=== PATIENT | male | born 1930 | race Caucasian/White ===

== ENCOUNTER 2017-04-01 10:10 | Inpatient (IN) ==
[2017-04-01] MEDS ORDERED: SODIUM CHLORIDE 0.9% 500 ML IV STA (10:40)
[2017-04-01] MEDS ORDERED: PANTOPRAZOLE 40 MG VIAL IV STA (10:40)
--- NOTE | 2017-04-01 10:48 | Emergency Department Note ---
Radha Grover Brittany, am scribing for, and in the presence of, Pavel Brasher MD 10: 46. Sameera Grover James D, MD, personally performed the services described in this documentation, ascribed by Nathalie Garcia in my presence, and it is both accurate and complete . Arrival - Arrival Chief Complaint: Weakness Stated Complaint: weakness ED Nursing Triage Note: Brought in per EMS from home with c/o generalized weakness onset "few weeks" ago with worsening this am. Also c/o black tarry stools. Denies pain. Mode of Arrival: Stretcher Limitations: No Limitations Source: Patient, EMS Time Seen by Provider: 04/01/17 10:35 - History of Present Illness HPI Narrative: This is an 86 y/o white male,who presents to the ED for further evaluation of melena which started 2 weeks ago. He denies any abd pain. He states he has been generalized weak with the black tarry stools. Upon exam pt had a + hemastool. Pt has no other complaints/pain in the ED at this time. Pt has a PMHx of NIDDM, pacemaker, TIA, depression, prostate cancer, and anemia. Pt denies a surgical Hx. Pt denies a family medical Hx. Pt is a current every day smoker. Patient denies any nonsteroidal anti-inflammatory drug use. Onset (ago): week(s) (Started 2 weeks ago) Consistency: constant Severity: moderate Allergies/Adverse Reactions: Allergies Allergy/AdvReac Type Severity Reaction Status Date / Time Penicillins Allergy RASH Verified 04/01/17 10:22 Home Medications: Home Medications Medication Instructions Recorded Confirmed Type Cholecalciferol [Vitamin D3] 1,000 unit PO QAM 10/29/16 04/01/17 History Colestipol HCl 1 gm PO BID 10/29/16 04/01/17 History Ferrous Sulfate Tab [Feosol 325 mg PO QAM 10/29/16 04/01/17 History Original Tab] Oxybutynin [Ditropan] 5 mg PO BID 10/29/16 04/01/17 History Escitalopram Oxalate 20 mg PO QAM 04/01/17 04/01/17 History Furosemide [Furosemide] 40 mg PO QAM 04/01/17 04/01/17 History Potassium 99 mg PO QAM 04/01/17 04/01/17 History metOLazone [Metolazone] 2.5 mg PO QAM 04/01/17 04/01/17 History Review of System - Review of System 12 point system: reviewed and no additional remarkable complaints except as stated - Review of System Constitutional: Present: weakness (Generalized weakness) Gastrointestinal: Present: melena, hematochezia. Absent: abdominal pain Medical,Surgical,& Family Hx - Medical History Cardio: History of: Pacemaker Psychological: History of: Depression Neurology: History of: TIA Endocrine: History of: Diabetes Mellitus (NIDDM) Genitourinary: History of: Prostate Problems (PROSTATE CANCER) Hematology: History of: Anemia - Surgical History Reproductive Surgeries: Patient denies;: Prostate Surgery (RADIATION) - Social History Smoking Status: Current every day smoker Frequency of Alcohol Use: None Type of Drug Use: None Exam Vital Signs: Vital Signs Temperature 97.7 F 04/01/17 10:17 Pulse Rate 71 04/01/17 11:30 Respiratory Rate 14 04/01/17 11:30 Blood Pressure 127/72 04/01/17 11:30 O2 Sat by Pulse Oximetry 100 04/01/17 11:30 GENERAL: This is a chronically and acutely ill-appearing white male in no apparent distress. VITAL SIGNS: Reviewed HEENT: Head is atraumatic and normocephalic. Pupils are equal round react to light. Extraocular movements are intact. Oropharynx is benign with moist mucous membranes. NECK: Neck is soft and supple without tenderness. There are no masses. There is no lymphadenopathy. LUNGS: Lungs are clear to auscultation. Chest rises symmetrically. There is no chest wall tenderness. CV: Heart is regular rate and rhythm without murmurs rubs or gallops. ABDOMEN: Abdomen is soft, nontender to palpation. There are no abdominal abnormal masses palpated. There is no organomegaly. Bowel sounds are present and active. Rectal: Black heme positive stool present in the rectum. No masses palpable. SKIN: Skin is warm and dry. No rash. EXTREMITIES: Patient has full range of motion without tenderness. There is no pedal edema. NEUROLOGIC: Awake alert and oriented 4. Cranial nerves II through XII are grossly intact. Motor is 5 over 5 in all extremities bilaterally. Course - Consultations Consultation #1: Discussed with hospitalist. Patient will be admitted to their service. Time: 12:14 Results - Labs CBC & BMP: 04/01/17 11:09 04/01/17 11:09 Lab Results: I have reviewed the patients labs - EKG EKG results: interpreted by ERMD - Impressions EKG: Electronic ventricular pacemaker with a rate of 74, no further interpretation possible. - Diagnostic Findings Procedure: Abdominal x-ray: image reviewed by me (Nonspecific gas pattern, no free air.), Chest x-ray: image reviewed by me (Right pleural effusion, pacemaker in place.) Disposition Clinical Impression: Acute upper GI bleed, Renal failure Case discussed with: patient, patient's family Disposition: Still a Patient Condition: Stable
[2017-04-01] MEDS ORDERED: PANTOPRAZOLE 40 MG VIAL IV ONE (10:49)
--- NOTE | 2017-04-01 11:03 | XRay Report ---
Exam: XR chest 1V portable Date: 04/01/2017 10:40 AM Indication: Shortness of breath Comparison: 10/29/2016 Technical: AP portable Findings: Left-sided cardiac pacing device with atrial ventricular leads present. The heart is slightly accentuated. Low volume right effusion and atelectatic change present. ASVD is present. There is some slight deviation of the trachea to the right with possible substernal thyroid tissue present. No pneumothorax present. Impression: 1. Right base pleural effusion atelectatic change or infiltrates 2. Stable position of the left subclavian cardiac pacing device with atrial ventricular leads. 3. Some minimal calcification over the right neck laterally. PROCEDURE INTERPRETED AT [facility] DEPARTMENT OF RADIOLOGY Final Report Signed by: Dr. Norman Bahena
--- NOTE | 2017-04-01 11:05 | XRay Report ---
Exam: XR abdomen complete w decub Date: 04/01/2017 10:41 AM Indication: Abdominal pain Comparison: None Technical: Supine imaging and decubitus Findings: Degenerative changes present thoracolumbar spine. Vascular plaque in the aorta iliac vessels. Low volume right effusion present. No obvious pneumoperitoneum. Moderate fecal debris in the rectal ampulla. The spleen and liver and renal shadows are partially obscured. Impression: 1. Degenerative spondylosis change thoracic lumbar spine 2. Vascular calcinosis 3. Phleboliths present in the distal right abdomen measuring approximately 10 mm 4. Nonspecific GI pattern. PROCEDURE INTERPRETED AT [facility] DEPARTMENT OF RADIOLOGY Final Report Signed by: Dr. Norman Bahena
[2017-04-01 11:24] LABS: Basophils % 0.5 % (0.0-0.8); Eosinophils # 0.2 10*3/uL (0.0-0.87); Eosinophils % 3.4 % (0.00-10.9); Hematocrit 33.5 VOL% (42.0-52.0); Hemoglobin 11.3 GM/DL (14.0-18.0); Immature Granulocytes % 0.2 %; Immature Granulocytes Absolute 0.01 #; Lymphocytes # 0.6 10*3/uL (1.4-4.0); Lymphocytes % 13.3 % (21.2-54.2); Mean Corpuscular HGB Conc 33.7 GM/DL (32-36); Mean Corpuscular Hemoglobin 30 PG (27-34); Mean Corpuscular Volume 89.8 FL (87-102); Mean Platelet Volume 10.8 FL (9.6-12.0); Monocytes # 0.5 10*3/uL (0.11-0.8); Monocytes % 11.9 % (1.7-12.7); Neutrophils # 3.1 10*3/uL (1.4-7.4); Neutrophils % 70.7 % (38.7-73.9); Red Blood Count 3.73 MC/CUMM (3.8-5.5); Red Cell Distribution Width 13.8 % (9.3-17.3); White Blood Count 4.4 T/CUMM (4-12)
[2017-04-01 11:27] LABS: Platelet Count 74 T/CUMM (130-400)
[2017-04-01 11:30] LABS: INR 1.2; PT Patient Result 12.3 SECS; Partial Thromboplastin Time 29.6 SECS (0-40)
[2017-04-01 11:42] LABS: Platelet Estimate Decreased
[2017-04-01 11:55] LABS: Albumin 3.3 G/DL (3.4-5.0); Bilirubin,Total 0.8 MG/DL (0.2-1.0); Calcium 8.8 MG/DL (8.5-10.1); Osmolality,Calculated 293.3 MOS/KG (273-304); Potassium 3.6 MMOL/L (3.5-5.1); Total Protein 7.3 G/DL (6.4-8.3)
--- NOTE | 2017-04-01 13:13 | EKG Report ---
Stationary ECG Study [facility] ER Test Date: 04/01/2017 10:57:01 AM Pat Name: DAVID CHASE Department: Room: Gender: M Hr Business Partner Consultant: : [id number] Requested by: Pavel Shin Order Number: [id number] Rekha MD: LUISANA KANG Intervals [place] Rate: 74 P: 999 ND: 0 QRS: 79 QRSD: 144 T: -78 QT: 438 QTc: 466 Interpretive Statements ELECTRONIC VENTRICULAR PACEMAKER ABNORMAL RHYTHM ECG Electronically Signed On 04-01-17 18:44:08 CDT by LUISANA KANG [email or web address]
--- NOTE | 2017-04-01 13:35 | Hospitalist History & Physical ---
Assessment and Plan - Time spent with patient Time spent with patient: Greater than 30 minutes (1) Chronic renal failure Status: Acute Assessment and plan: Mr. Suh is an 86-year-old white male with history of depression, prostate cancer, history of lower GI bleed admitted by hospitalist service with 2 week history of black tarry stools, weakness and fatigue. Patient's vital signs are stable and H&H is stable. Will admit to a monitored bed and consult GI for further workup. Patient has seen Dr. Crooks in 2013. Patient will be given fluids and clear liquid diet. Will review his home medicines and start appropriate meds. Patient's case has been discussed with Dr. Vidales and further recommendations to follow. Current Visit: Yes (2) GI bleed Status: Acute Current Visit: Yes (3) History of prostate cancer Status: Acute Current Visit: Yes (4) History of lower GI bleeding Status: Acute Current Visit: Yes History of Present Illness Chief complaint: Tarry stools History of present illness: Mr. Suh is a 86 year old male with history of anemia, prostate cancer status post radiation, depression, pacemaker placement for bradycardia presenting to the ED with a 2 week history of dark tarry stools. Patient states he has been having 2-3 dark tarry stools for about 2 weeks but he has progressively gotten weaker over the last few days and tired. Daughter is in the room states he is sleeping all the time and is very weak. Patient denies vomiting of blood or bright red blood per rectum. Patient and daughter both state he has lost 20 pounds in the last 6 months and 10 of them have been in the last week or 2. He thinks his p.o. intake has been fine. He denies headache, shortness of breath, chest pain, constipation or diarrhea, nausea or vomiting, abdominal pain, or lower extremity edema. Dr. Jo was his primary care physician but they state they fired him yesterday. Patient denies any heart or lung problems. Patient states he has never seen a GI doctor but [facility] records state he seen Dr. Crooks in 2013 for colonoscopy with snare polypectomy and cold biopsy for pathology. [facility] records also show a history of stroke. Also found some records dated 10/11/[address] Gagandeep Talbot performed an exploratory laparotomy with right colectomy and hemitransverse colectomy for bleeding diverticulosis secondary to massive lower GI bleed. Patient's vital signs are stable and his H&H is stable at 11.3/33.5, but platelets are low at 74. His creatinine is 2, blood sugars 130 but otherwise his labs are unremarkable. Upon exam patient is alert and oriented, chest is clear, abdomen is soft and nontender. Patient's case was discussed with Dr. Brasher the ED physician and Dr. Vidales the admitting hospitalist, and it was agreed patient would be admitted for further evaluation. Home Medications Medication Instructions Recorded Confirmed Type Cholecalciferol [Vitamin D3] 1,000 unit PO QAM 10/29/16 04/01/17 History Colestipol HCl 1 gm PO BID 10/29/16 04/01/17 History Ferrous Sulfate Tab [Feosol 325 mg PO QAM 10/29/16 04/01/17 History Original Tab] Oxybutynin [Ditropan] 5 mg PO BID 10/29/16 04/01/17 History Escitalopram Oxalate 20 mg PO QAM 04/01/17 04/01/17 History Furosemide [Furosemide] 40 mg PO QAM 04/01/17 04/01/17 History Potassium 99 mg PO QAM 04/01/17 04/01/17 History metOLazone [Metolazone] 2.5 mg PO QAM 04/01/17 04/01/17 History Allergies Allergy/AdvReac Type Severity Reaction Status Date / Time Penicillins Allergy RASH Verified 04/01/17 10:22 Medical,Surgical,& Family Hx - Medical History Cardio: History of: Pacemaker Psychological: History of: Depression Neurology: History of: TIA Endocrine: History of: Diabetes Mellitus (NIDDM) Genitourinary: History of: Prostate Problems (PROSTATE CANCER) Hematology: History of: Anemia - Surgical History Cardiac Surgeries: Sugical HX of: Vascular Access Devices Abdominal Surgeries: Surgical HX of: Abdominal Surgery, Colonoscopy Reproductive Surgeries: Patient denies;: Prostate Surgery (RADIATION) - Family History Family History: Reports;: Family Cancer - Social History Smoking Status: Current every day smoker Frequency of Alcohol Use: None Type of Drug Use: None Marital Status: Single Lives With:: Children Functional capacity: uses cane/walker Review of systems: 10 system review of systems was obtained and pertinent positives and negatives per HPI Exam - Constitutional Vitals: Period Temp Pulse Resp BP Sys/Spring Pulse Ox Last 24 Hr 75-77 13-15 117-122/75-77 98-100 Exam: Constitutional System: No distress. No tremulousness. Head: Normocephalic, atraumatic. Ears, Nose and Throat System: No evidence of Otitis or Mastoiditis. No epistaxis or discharge mucous membranes are dry Eyes System: Pupils equal, round, and reactive. Extraocular muscles intact. Neck: Supple, without adenopathy, No jugular venous distention. No thyromegaly, neck mass, or prior surgery apparent. Respiratory System: Chest clear to auscultation. Cardiovascular System: Heart with regular rate and rhythm. No murmur. Pacemaker intact with no signs of infection GI System: Abdomen soft, nontender. Normo active bowel sounds present. Well- healed abdominal midline incision Musculoskeletal System: limbs with no pedal edema. Full distal pulses. Neurological System: No discernable sensory deficit. No aphasia Psychiatric System: Conversation is rational Results - Labs CBC & BMP: 04/01/17 11:09 04/01/17 11:09 Lab Results: I have reviewed the past 24 hour labs - Impressions Pacemaker - Diagnostic Findings Procedure: Abdominal x-ray: report reviewed by me (Degenerative spondylosis in thoracic lumbar spine. Vascular calcinosis. Phleboliths present in distal right abdomen measuring 10 mm), Chest x-ray: report reviewed by me (Right base pleural effusion and atelectatic change or infiltrate)
[2017-04-01] MEDS ORDERED: ONDANSETRON 4 MG/2 ML VIAL IV PRN (13:44)
[2017-04-01] MEDS ORDERED: guaiFENesin/DM ER 600-30 MG TABLET PO PRN (13:44)
[2017-04-01] MEDS ORDERED: ACETAMINOPHEN 325 MG TABLET PO PRN ×2 (13:44)
[2017-04-01] MEDS ORDERED: NICOTINE 21 MG/24 HR PATCH TRANSDERM PRN (13:44)
[2017-04-01] MEDS ORDERED: diphenhydrAMINE CAP 25 MG CAPSULE PO PRN (13:44)
[2017-04-01] MEDS ORDERED: MORPHINE 2 MG/1 ML SYRINGE IV PRN (13:44)
[2017-04-01] MEDS ORDERED: SODIUM CHLORIDE 0.9% 1,000 ML IV SCH (14:00)
[2017-04-01 14:45] LABS: Hematocrit 32.4 VOL% (42.0-52.0); Hemoglobin 10.7 GM/DL (14.0-18.0)
[2017-04-01] MEDS: PANTOPRAZOLE 40 MG TABLET PO SCH ×2 (15:38→21:11)
--- NOTE | 2017-04-01 17:35 | Gastrointestinal Consult Note ---
Assessment and Plan (1) Acute upper GI bleed Status: Acute Assessment and plan: Patient states that over the last 2 weeks he has been having black stools and has dropped his hematocrit down to 32.4%, differential diagnosis includes esophagitis, esophageal cancer, gastritis, gastric cancer, AVMs, Dieulafoy's lesion, peptic ulcer disease, and duodenitis. We will perform upper endoscopy tomorrow morning to assess this. Patient should remain off of anticoagulants for the present time and I agree with use of Protonix twice daily in the interim until we can assess what is going on. Risks and benefits of the procedure were outlined with the patient and his son Artie jean who is at the bedside. Please include but are not limited to: Bleeding, infection, perforation, cardiac and pulmonary compromise. Current Visit: Yes (2) Acute posthemorrhagic anemia Status: Acute Assessment and plan: No immediate plans to transfuse patient unless his hematocrit drops below 24%. As I doubt this will happen have not written any parameters. He really does not require repeat colonoscopy for at least 5 years i.e. January of 2019. Current Visit: Yes (3) Personal history of colonic polyps Status: Acute Assessment and plan: As mentioned above, repeat colonoscopy in January 2019. Current Visit: Yes (4) Abnormal weight loss Status: Acute Assessment and plan: This might be due to the patient's underlying depression, there could be gastroparesis present that could be gastritis or peptic ulcer disease or even celiac sprue potentially-- all these can produce anemia and weight loss. We will assess further with upper endoscopy tomorrow morning. Current Visit: Yes (5) Arteriovenous malformation of colon Status: Acute Current Visit: Yes (6) Dysphagia Status: Acute Assessment and plan: Patient is having some difficulty swallowing at the level of his oropharynx. This may be due to his dentures to some degree although the patient has also had difficulty with NG tube placement/Dobbhoff placement in the past we will likely use a Savary dilator and dilated his esophagus depending on findings at upper endoscopy. If there is Zenker's here here there will not likely not be much help from dilation--this may potentially require surgery for resection. Further recommendations post upper endoscopy with potential dilation Current Visit: Yes (7) GERD (gastroesophageal reflux disease) Status: Acute Assessment and plan: Continue to control acid with Protonix as mentioned above, on a twice daily dosing schedule. Current Visit: Yes History of Present Illness Chief complaint: 20 pound weight loss, GERD, mild oral dysphagia, melena, HCT 32.4% History of present illness: Mr. Suh is a 86 year old male known to me from his previous colonoscopy back on 02/08/14 at which time the patient underwent colonoscopy because of scant rectal bleeding. He does have a history of prostate cancer and had some rectal telangiectasias that were cauterized using argon plasma coagulation. The single ascending polyp was noted that was removed by snare polypectomy and the patient had previous colon resection for previous diverticulosis resulting in massive GI bleeding in the past. This effectively removed the cecum and a portion of the ascending colon. He did well post colonoscopy and for the last 2 weeks has been developing black dark stools that were not particularly sticky. His hematocrit at this time has dropped down to 32.4 and although he does complain of some difficulty with swallowing with food getting stuck in his oropharynx. He attributes this to his dentures but the son notes that the dentures of only been present for the last month or so and his weight loss is measured is about 20 pounds over the last 6 months with 10 of these pounds being the last several weeks. His platelets are low in the 70s at the present time due to unclear reasons. The patient had had upper endoscopy done as recently as 10/18/05 at which time he required a dilation due to esophageal stricturing. Is been seen by Dr. Cano and Dr. Rowland approximately 12 years ago. He does complain of some reflux symptoms. He has not had any nausea or vomiting he just states that he gets full quickly. His stools are dark and grossly guaiac positive. He does not have any particular abdominal pain on physical examination, there is no family history of colon cancer polyps. His prostate cancer is in remission by report. Home Medications Medication Instructions Recorded Confirmed Type Cholecalciferol [Vitamin D3] 1,000 unit PO QAM 10/29/16 04/01/17 History Colestipol HCl 1 gm PO BID 10/29/16 04/01/17 History Ferrous Sulfate Tab [Feosol 325 mg PO QAM 10/29/16 04/01/17 History Original Tab] Oxybutynin [Ditropan] 5 mg PO BID 10/29/16 04/01/17 History Escitalopram Oxalate 20 mg PO QAM 04/01/17 04/01/17 History Furosemide [Furosemide] 40 mg PO QAM 04/01/17 04/01/17 History Potassium 99 mg PO QAM 04/01/17 04/01/17 History metOLazone [Metolazone] 2.5 mg PO QAM 04/01/17 04/01/17 History Allergies Allergy/AdvReac Type Severity Reaction Status Date / Time Penicillins Allergy RASH Verified 04/01/17 10:22 Medical,Surgical,& Family Hx - Medical History Cardio: History of: Pacemaker Psychological: History of: Depression Neurology: History of: TIA Endocrine: History of: Diabetes Mellitus (NIDDM) Genitourinary: History of: Prostate Problems (PROSTATE CANCER) Hematology: History of: Anemia - Surgical History Cardiac Surgeries: Sugical HX of: Vascular Access Devices Abdominal Surgeries: Surgical HX of: Abdominal Surgery, Colonoscopy Reproductive Surgeries: Patient denies;: Prostate Surgery (RADIATION) - Family History Family History: Reports;: Family Cancer - Social History Smoking Status: Current every day smoker Frequency of Alcohol Use: None Type of Drug Use: None Review of systems: Constitutional: Denies fever, chills, some mild nausea, without vomiting Eyes: Denies dry eyes, and scleral icterus HENT: Denies headaches Cardiovascular: Denies acute chest pain and claudication Respiratory: Denies shortness of breath, wheezing, and difficulty breathing, denies cough Gastrointestinal: As noted in the HPI Genitourinary: Denies dysuria and hematuria Neurologic: The patient does have some vision loss, and loss of sensation Musculoskeletal: He admits to joint swelling, joint stiffness, and muscular weakness Psychiatric: He does have depression but no kendrick symptoms Heme-Lymph: He does have some easy bruising, but no lymph node enlargement or tenderness, night sweats, excessive bleeding Allergies-immunologic: Mild pruritus this is led to some excoriation of his buttock without rhinorrhea Exam - Constitutional Vitals: Period Temp Pulse Resp BP Sys/Spring Pulse Ox Last 24 Hr 98.4 F-99.0 F 73-77 13-20 104-122/65-77 93-100 General appearance: no acute distress, under weight, disheveled - Head Head exam: Present: normal inspection, normocephalic, other (Temporal wasting noted) - Eye Eye exam: Present: EOMI Pupils: Present: PRIYANKA - Neck Neck exam: Present: other (Loss of subcutaneous tissue) - Respiratory Respiratory exam: Present: clear to auscultation bilaterally. Absent: rales, rhonchi, stridor, wheezes - Cardiovascular Cardiovascular exam: Present: regular rate and rhythm - GI/Abdominal GI/Abdominal exam: Present: normal bowel sounds, distended, soft, other ( Increased tympany from gas, stool is dark brown and grossly guaiac positive). Absent: tenderness, rebound - Neurological Exam Neurological exam: Present: alert, oriented X3 - Psychiatric Psychiatric exam: Present: normal affect, normal mood. Absent: agitated, anxious - Skin Skin exam: Present: warm Results - Labs CBC & BMP: 04/01/17 14:36 04/01/17 11:09 Quality Measures - VTE Contraindication to Pharmacological VTE Prophylaxis: High Risk of Bleeding
[2017-04-01] MEDS: OXYBUTYNIN 5 MG TABLET PO SCH (21:11)
[2017-04-01 22:41] LABS: Hematocrit 30.7 VOL% (42.0-52.0); Hemoglobin 10.2 GM/DL (14.0-18.0)
[2017-04-02 06:39] LABS: Basophils % 0.5 % (0.0-0.8); Eosinophils # 0.2 10*3/uL (0.0-0.87); Eosinophils % 3.7 % (0.00-10.9); Hematocrit 33.1 VOL% (42.0-52.0); Hemoglobin 11.1 GM/DL (14.0-18.0); Immature Granulocytes % 0.2 %; Immature Granulocytes Absolute 0.01 #; Lymphocytes # 0.8 10*3/uL (1.4-4.0); Lymphocytes % 17.9 % (21.2-54.2); Mean Corpuscular HGB Conc 33.5 GM/DL (32-36); Mean Corpuscular Hemoglobin 30 PG (27-34); Mean Corpuscular Volume 90.7 FL (87-102); Mean Platelet Volume 11.7 FL (9.6-12.0); Monocytes # 0.4 10*3/uL (0.11-0.8); Monocytes % 8.8 % (1.7-12.7); Neutrophils % 68.9 % (38.7-73.9); Red Blood Count 3.65 MC/CUMM (3.8-5.5); Red Cell Distribution Width 13.9 % (9.3-17.3); White Blood Count 4.3 T/CUMM (4-12)
[2017-04-02 06:41] LABS: Platelet Count 72 T/CUMM (130-400)
[2017-04-02 06:43] LABS: INR 1.1; PT Patient Result 12.2 SECS
[2017-04-02 07:12] LABS: Calcium 8.2 MG/DL (8.5-10.1); Magnesium 2.3 MG/DL (1.8-2.4); Osmolality,Calculated 287.4 MOS/KG (273-304); Potassium 3.6 MMOL/L (3.5-5.1)
[2017-04-02] MEDS ORDERED: LIDOCAINE 1% 5 ML VIAL ONE (08:28)
[2017-04-02] MEDS ORDERED: PROPOFOL 200 MG/20 ML VIAL IV ONE (08:28)
--- NOTE | 2017-04-02 08:49 | Operative Note ---
Date of procedure: 04/02/17 Pre-op diagnosis: Dark stools 2 weeks, decreased crit 33%. Abnormal weight loss Post-op diagnosis: other Procedure: PROCEDURE: Esophagogastroduodenoscopy (EGD) with cold biopsy for pathology REFERRING PHYSICIAN: Dr. Buffy Wheeler MD INDICATIONS: Dark stools 2 weeks in a patient who has had an abnormal weight loss going on for years and decrease in hematocrit to 33% the prior H&P was reviewed and interrim changes are as noted: No change from GI consultation yesterday ENDOSCOPIST: Kashif Crooks MD ENDOSCOPE: xkoto Video 100 System upper endoscope ASA CLASS: 4 EXAM: CV: regular rate and rhythm respiratory: Clear without wheezes abdominal: active bowel sounds MEDICATION: Per nursing anesthesia protocol, see their notes PROCEDURE: After discussion of the potential risks and benefits of upper endoscopy, the informed consent was obtained. The patient was then placed in the left lateral decubitus position where sedation was achieved as noted above. Esophageal intubation was performed without difficulty, and the endoscope was advanced through the esophagus, stomach and duodenum. A slow withdrawal was then performed with retroflexion in the stomach for careful inspection of the incisura angularis, fundus and cardia. The scope was then returned to a neutral position and withdrawn through the esophagus. The patient tolerated the procedure well and without complication. BIOPSIES: Gastric antrum/body and duodenum to rule out sprue PHOTOGRAPHS: Obtained FINDINGS: Hypopharynx and Larynx: Normal Esohagoscopy Upper and middle thirds: Esophageal varices grade II2 columns Lower third esophageal varices grade II2 columns Esophogastric junctions: No gross evidence of stricturing, Michaels's or esophagitis Gastroscopy: Cardia/Fundus: Scant amount of retained clear fluid, no hiatal hernia, somewhat thickened gastric folds with some localized erosion here, biopsied Body: Thickened folds, J-shaped stomach, mild patchy gastritis Antrum and pylorus mild patchy gastritis with localized erosions noted near the pylorus, biopsied Duodenoscopy: Bulb normal-appearing, biopsied for sprue Second and third portions: Normal-appearing with bile staining, biopsied for sprue IMPRESSION: This patient has esophageal varices of unclear origin, ? Cirrhosis of unclear etiology--will have to query about this patient's drinking habits later in the admission. Thickened folds in the stomach may represent a diffuse gastritis with worsening in the fundus perhaps due to ingested pills with caustic effect in this region vs. Helicobacter pylori or rarely lienitis plastica. Duodenal biopsies taken but no gross evidence of celiac sprue. RECOMMENDATIONS: Follow up for biopsy results in 1-2 weeks by phone [phone] Continue anti-gastroesophageal reflux measures (avoid carbonated and acidic beverages, avoid eating within 2 hours of bedtime, avoid tight fitting clothing , and elevate the front bed posts 6 inches prior to sleeping. Resume regular oral intake Pantoprazole 40 mg daily prior to suppertime If Helicobacter pylori is discovered we will treat with appropriate antibiotics We need to question the patient further on his esophageal varices/cirrhosis. Will order hepatitis A, B, and C panel and queried the patient about his drinking habits later. Kashif Crooks MD COPY TO: Dr. Buffy Wheeler MD Anesthesia: MAC Surgeon / Physician: Kashif Crooks Estimated blood loss: minimal Specimens: other (Gastric antrum/body and duodenal) Condition: stable Disposition: post procedure unit ([facility]) Results - Labs CBC & BMP: 04/02/17 05:47 04/02/17 05:47 Discharge Plan - Discharge Medications No Action metOLazone [Metolazone] 2.5 mg PO QAM Potassium 99 mg PO QAM Escitalopram Oxalate 20 mg PO QAM Furosemide [Furosemide] 40 mg PO QAM Cholecalciferol [Vitamin D3] 1,000 unit PO QAM Oxybutynin [Ditropan] 5 mg PO BID Ferrous Sulfate Tab [Feosol Original Tab] 325 mg PO QAM Colestipol HCl 1 gm PO BID - Follow Up or Referral - Forms/Instructions
--- NOTE | 2017-04-02 08:58 | Gastrointestinal Progress Note ---
Assessment and Plan (1) Acute upper GI bleed Status: Acute Assessment and plan: Patient states that over the last 2 weeks he has been having black stools and has dropped his hematocrit down to 32.4%, differential diagnosis includes esophagitis, esophageal cancer, gastritis, gastric cancer, AVMs, Dieulafoy's lesion, peptic ulcer disease, and duodenitis. We will perform upper endoscopy tomorrow morning to assess this. Patient should remain off of anticoagulants for the present time and I agree with use of Protonix twice daily in the interim until we can assess what is going on. Risks and benefits of the procedure were outlined with the patient and his son Artie jean who is at the bedside. Please include but are not limited to: Bleeding, infection, perforation, cardiac and pulmonary compromise. 04/02/17--this patient has some moderate weight loss in addition to the dark stools and a drop in his hematocrit. The EGD demonstrated the following: This patient has esophageal varices of unclear origin, ? Cirrhosis of unclear etiology--will have to query about this patient's drinking habits later in the admission. Thickened folds in the stomach may represent a diffuse gastritis with worsening in the fundus perhaps due to ingested pills with caustic effect in this region vs. Helicobacter pylori or rarely lienitis plastica. Duodenal biopsies taken but no gross evidence of celiac sprue. Current Visit: Yes (2) Esophageal varices without bleeding Status: Acute Assessment and plan: These were noted on upper endoscopy, the patient seems to have cirrhosis, this may be related to previous drinking history or to hepatitis of some type. We will check the usual causes of cirrhosis including hemochromatosis, viral hepatitis, alpha-1 antitrypsin deficiency, and autoimmune hepatitis. This may be a cause for his abnormal weight loss. Will check a alpha-fetoprotein level to see if there is hepatocellular carcinoma as well as an ultrasound to look for masses in the liver. Current Visit: Yes (3) Acute posthemorrhagic anemia Status: Acute Assessment and plan: No immediate plans to transfuse patient unless his hematocrit drops below 24%. As I doubt this will happen have not written any parameters. He really does not require repeat colonoscopy for at least 5 years i.e. January of 2019. 04/02/17--the patient's hematocrit is remained stable over the last 24 hours. If he is doing this well tomorrow would certainly discharge him to home after the laboratories/ultrasound are completed in working up his cirrhosis. Current Visit: Yes (4) Personal history of colonic polyps Status: Acute Assessment and plan: As mentioned above, repeat colonoscopy in January 2019. 04/02/17--As mentioned above repeat colonoscopy in January 2019 Current Visit: Yes (5) Abnormal weight loss Status: Acute Assessment and plan: This might be due to the patient's underlying depression, there could be gastroparesis present that could be gastritis or peptic ulcer disease or even celiac sprue potentially-- all these can produce anemia and weight loss. We will assess further with upper endoscopy tomorrow morning. 04/02/17--See above--I am going to start the patient back on a renal soft diet and see how he does. Current Visit: Yes (6) Arteriovenous malformation of colon Status: Acute Current Visit: Yes (7) Dysphagia Status: Acute Assessment and plan: Patient is having some difficulty swallowing at the level of his oropharynx. This may be due to his dentures to some degree although the patient has also had difficulty with NG tube placement/Dobbhoff placement in the past we will likely use a Savary dilator and dilated his esophagus depending on findings at upper endoscopy. If there is Zenker's here here there will not likely not be much help from dilation--this may potentially require surgery for resection. Further recommendations post upper endoscopy with potential dilation. 04/02/17--this patient did not have any gross evidence of stricturing however in his esophagus he did have some very plump varices present. These actually became paradoxically larger the further up in his chest and we went. Overall I would call them a grade 2. We did not dilate for fear of rupturing these. Current Visit: Yes (8) GERD (gastroesophageal reflux disease) Status: Acute Assessment and plan: Continue to control acid with Protonix as mentioned above, on a twice daily dosing schedule. Current Visit: Yes Gastroenterology - PN: Subj Interval history: No new complaints, patient states that he is hungry and would like to be fed. Exam (Progress Note) - Constitutional Vitals: Period Temp Pulse Resp BP Sys/Spring Pulse Ox Last 24 Hr 98 F-99.1 F 69-77 12-20 96-133/55-076 93-100 General appearance: mild distress - Head Head exam: Present: normocephalic - Eye Eye exam: Present: EOMI Pupils: Present: PRIYANKA - Respiratory Respiratory exam: Present: clear to auscultation bilaterally. Absent: rhonchi, stridor, wheezes - Cardiovascular Cardiovascular exam: Present: regular rate and rhythm - GI/Abdominal GI/Abdominal exam: Present: normal bowel sounds, tenderness, soft. Absent: distended, guarding, rebound - Extremities Exam Extremities exam: Present: normal inspection - Neurological Exam Neurological exam: Present: alert, altered (Dementia noted) - Psychiatric Psychiatric exam: Present: normal affect, normal mood - Skin Skin exam: Present: warm Results - Labs CBC & BMP: 04/02/17 05:47 04/02/17 05:47
[2017-04-02 09:08] LABS: % Iron Saturation 17.6 % (18-50)
--- NOTE | 2017-04-02 10:09 | Hospitalist Progress Note ---
Assessment and Plan - Time spent with patient Time spent with patient: Greater than 30 minutes (1) Acute posthemorrhagic anemia Status: Acute Assessment and plan: Status post EGD. Findings have been noted and suggestion of possible cirrhosis based on findings. Family and patient deny history of alcohol consumption. Hemoglobin is stable and iron panel is suggestive of iron deficiency anemia. Current Visit: Yes (2) Esophageal varices without bleeding Status: Acute Assessment and plan: Defer to GI Current Visit: Yes (3) Chronic renal failure Status: Acute Assessment and plan: Slightly improved however at baseline. Current Visit: Yes Hospitalist: Subjective Interval history: Mr. Suh is back from his EGD this morning. He has no complaints. Denies any melena or bright blood per rectum currently. On EGD he was noted to have varices and I spoke to the family about alcohol consumption they state he has consumed very little alcohol over the course of his life. Exam - Constitutional Vitals: Period Temp Pulse Resp BP Sys/Spring Pulse Ox Last 24 Hr 98 F-99.1 F 66-77 12-20 96-133/55-076 93-100 General appearance: normal weight, no acute distress - Head Head exam: Present: normocephalic, atraumatic - Eye Eye exam: Present: EOMI Pupils: Present: PRIYANKA - ENT ENT exam: Present: normal exam - Neck Neck exam: Present: normal inspection - Respiratory Respiratory exam: Present: clear to auscultation bilaterally. Absent: rhonchi, wheezes - Cardiovascular Cardiovascular exam: Present: regular rate and rhythm. Absent: gallop, rubs, systolic murmur - GI/Abdominal GI/Abdominal exam: Present: normal bowel sounds, soft. Absent: distended, firm , guarding, tenderness, rebound - Extremities Exam Extremities exam: Present: normal inspection. Absent: calf tenderness, edema Results - Labs CBC & BMP: 04/02/17 05:47 04/02/17 05:47 Lab Results: I have reviewed the past 24 hour labs Quality Measures - VTE Contraindication to Pharmacological VTE Prophylaxis: High Risk of Bleeding
--- NOTE | 2017-04-02 11:01 | Anesthesia Post-Op ---
Anesthesia Post OP - Post Ansesthetic Evaluation Patient seen in post op: Yes Resp: within normal limits CV: within normal limits Mental: within normal limits Temp: within normal limits [id number]: within normal limits Nausea and Vomiting: within normal limits Pain: within normal limits
--- NOTE | 2017-04-02 11:27 | Ultrasound Report ---
Exam: US abdomen Date:04/02/2017 8:53 AM Indication: Esophageal varices on EGD Comparison: CT abdomen pelvis 09/20/2014 Findings: Liver: 13.9 cm. The hepatic and portal veins are patent. No focal mass present. Gallbladder: Multiple stones present within the gallbladder. The anterior wall is slightly prominent at 6 mm was trace of pericholecystic fluid. CBD: 5.5 mm Pancreas: Poorly visualized on today's study Kidneys Right kidney: 8 x 4.5 x 5.5 cm. There is hydronephrosis of the right renal collecting system with dilatation of the renal pelvis With cortical thinning present. Left kidney: 9.7 x 3.8 x 5.1 cm No hydronephrosis perinephric fluid collection otherwise noted. Aorta IVC: IVC is patent aorta is demonstrated with aneurysm dilatation measuring up to 4.1 x 4.7 cm. Spleen: 16 x 6 x 9 cm which is enlarged. Ascites: Present. Impression: 1. Ascites present. 2. Splenomegaly 3. 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 Hydronephrosis right renal collecting system with thinning of the renal cortex. If additional imaging is warranted CT imaging with contrast and CT angiography may be beneficial as well to further evaluate the aneurysm and cause of obstruction of the right kidney. Previous studies aneurysm measuring up to 4.3 cm Ultrasound images were stored and captured The Ultrasound images were captured and stored. PROCEDURE INTERPRETED AT [facility] [place] DEPARTMENT OF RADIOLOGY Final Report Signed by: Dr. Norman Bahena
[2017-04-02 11:31] LABS: Hepatitis A Ab IgM Quant < 0.02 Index; Hepatitis A Ab IgM Result Negative (Negative); Hepatitis B Core IgM Quant 0.16 Index; Hepatitis B Core IgM Result Negative (Negative); Hepatitis B Surface Ag Quant 0.38 Index; Hepatitis B Surface Ag Result Negative (Negative); Hepatitis C Virus Ab Quant 0.19 Index; Hepatitis C Virus Ab Result Negative (Negative)
[2017-04-02] MEDS: ESCITALOPRAM 10 MG TABLET PO SCH (11:52)
[2017-04-02] MEDS: OXYBUTYNIN 5 MG TABLET PO SCH ×2 (11:52→20:55)
[2017-04-02] MEDS: PANTOPRAZOLE 40 MG TABLET PO SCH ×2 (11:52→20:55)
[2017-04-02 12:00] LABS: AFP Tumor < 1.3 NG/ML (0-8)
[2017-04-03 04:49] LABS: Basophils % 0.4 % (0.0-0.8); Eosinophils # 0.1 10*3/uL (0.0-0.87); Eosinophils % 2.7 % (0.00-10.9); Hematocrit 27.8 VOL% (42.0-52.0); Hemoglobin 9.3 GM/DL (14.0-18.0); Immature Granulocytes % 0.4 %; Immature Granulocytes Absolute 0.02 #; Lymphocytes # 0.4 10*3/uL (1.4-4.0); Lymphocytes % 7.9 % (21.2-54.2); Mean Corpuscular HGB Conc 33.5 GM/DL (32-36); Mean Corpuscular Hemoglobin 31 PG (27-34); Mean Corpuscular Volume 91.1 FL (87-102); Mean Platelet Volume 11.3 FL (9.6-12.0); Monocytes # 0.5 10*3/uL (0.11-0.8); Monocytes % 11.2 % (1.7-12.7); NRBC # 0.03 10*3/uL; Neutrophils # 3.4 10*3/uL (1.4-7.4); Neutrophils % 77.4 % (38.7-73.9); Red Blood Count 3.05 MC/CUMM (3.8-5.5); Red Cell Distribution Width 13.7 % (9.3-17.3); White Blood Count 4.5 T/CUMM (4-12)
[2017-04-03 04:51] LABS: Platelet Count 56 T/CUMM (130-400)
[2017-04-03 04:56] LABS: INR 1.2; PT Patient Result 12.5 SECS
[2017-04-03 05:19] LABS: Burr Cells Few; Ovalocytes 2+; Platelet Estimate Decreased
[2017-04-03 05:29] LABS: Potassium 3.4 MMOL/L (3.5-5.1)
[2017-04-03] MEDS ORDERED: LEVOFLOXACIN INJ 500 MG in PREMIX 1 EACH IV ONE (09:00)
[2017-04-03] MEDS: PANTOPRAZOLE 40 MG TABLET PO SCH ×2 (10:21→20:22)
[2017-04-03] MEDS: OXYBUTYNIN 5 MG TABLET PO SCH ×2 (10:21→20:22)
[2017-04-03] MEDS: ESCITALOPRAM 10 MG TABLET PO SCH (10:22)
--- NOTE | 2017-04-03 10:22 | Hospitalist Progress Note ---
Assessment and Plan - Time spent with patient Time spent with patient: Greater than 30 minutes (1) Pneumonia Status: Acute Assessment and plan: Start Levaquin. Current Visit: Yes (2) Acute posthemorrhagic anemia Status: Acute Assessment and plan: Status post EGD. Findings have been noted and suggestion of possible cirrhosis based on findings. Family and patient deny history of alcohol consumption. Hemoglobin is stable and iron panel is suggestive of iron deficiency anemia. Current Visit: Yes (3) Esophageal varices without bleeding Status: Acute Assessment and plan: Defer to GI Current Visit: Yes (4) Chronic renal failure Status: Acute Assessment and plan: Slightly improved however at baseline. Current Visit: Yes Hospitalist: Subjective Interval history: Reports continued black stools. Tmax 99.7. Exam - Constitutional Vitals: Period Temp Pulse Resp BP Sys/Spring Pulse Ox Last 24 Hr 97.6 F-99.7 F 70-106 16-20 104-145/56-90 96-98 General appearance: no acute distress - Head Head exam: Present: normocephalic, atraumatic - Eye Eye exam: Present: EOMI Pupils: Present: PRIYANKA - ENT ENT exam: Present: normal exam - Neck Neck exam: Present: normal inspection - Respiratory Respiratory exam: Present: clear to auscultation bilaterally. Absent: rhonchi, wheezes - Cardiovascular Cardiovascular exam: Present: regular rate and rhythm. Absent: gallop, rubs, systolic murmur - GI/Abdominal GI/Abdominal exam: Present: normal bowel sounds, soft. Absent: distended, firm , guarding, tenderness, rebound - Extremities Exam Extremities exam: Present: normal inspection. Absent: calf tenderness, edema Results - Labs CBC & BMP: 04/03/17 04:21 04/03/17 04:21 Lab Results: I have reviewed the past 24 hour labs Quality Measures - VTE Contraindication to Pharmacological VTE Prophylaxis: High Risk of Bleeding
--- NOTE | 2017-04-03 11:50 | Gastrointestinal Progress Note ---
Assessment and Plan (1) Acute upper GI bleed Status: Acute Assessment and plan: Patient states that over the last 2 weeks he has been having black stools and has dropped his hematocrit down to 32.4%, differential diagnosis includes esophagitis, esophageal cancer, gastritis, gastric cancer, AVMs, Dieulafoy's lesion, peptic ulcer disease, and duodenitis. We will perform upper endoscopy tomorrow morning to assess this. Patient should remain off of anticoagulants for the present time and I agree with use of Protonix twice daily in the interim until we can assess what is going on. Risks and benefits of the procedure were outlined with the patient and his son Artie jean who is at the bedside. Please include but are not limited to: Bleeding, infection, perforation, cardiac and pulmonary compromise. 04/02/17--this patient has some moderate weight loss in addition to the dark stools and a drop in his hematocrit. The EGD demonstrated the following: This patient has esophageal varices of unclear origin, ? Cirrhosis of unclear etiology--will have to query about this patient's drinking habits later in the admission. Thickened folds in the stomach may represent a diffuse gastritis with worsening in the fundus perhaps due to ingested pills with caustic effect in this region vs. Helicobacter pylori or rarely lienitis plastica. Duodenal biopsies taken but no gross evidence of celiac sprue. 04/03/17--the patient's hematocrit is down marginally from yesterday. Biopsies are already back from the gastritis seen in the stomach and this is Helicobacter pylori negative. Patient does not have any evidence of celiac sprue. The bleeding may previously have been from esophageal varices--these were noted on examination. Hematocrit is drifted down to 27% and we need to give him 1 unit transfusion order to provide some cushion in case he opens up and bleeds again. Note that this patient's platelet count is down from the 70s to the 50s now. If he begins to bleed quite briskly he will want to give him a single donor unit of platelets. Patient is demented but not excessively confused out of his baseline. The case was discussed at length with his son in the hallway outside the patient's room. Current Visit: Yes (2) Esophageal varices without bleeding Status: Acute Assessment and plan: These were noted on upper endoscopy, the patient seems to have cirrhosis, this may be related to previous drinking history or to hepatitis of some type. We will check the usual causes of cirrhosis including hemochromatosis, viral hepatitis, alpha-1 antitrypsin deficiency, and autoimmune hepatitis. This may be a cause for his abnormal weight loss. Will check a alpha-fetoprotein level to see if there is hepatocellular carcinoma as well as an ultrasound to look for masses in the liver. 04/03/17-- Patient was not known to previously be cirrhotic. He has hepatitis A , B, and C are negative and he does not appear to have hemochromatosis or autoimmune hepatitis. He states that he does not have much of a drinking history. Currently my best guess is that this is cirrhosis due to medication effect or nonalcoholic fatty liver disease. The ultrasound does not show any masses and the AFP level is negative/normal looking for hepatocellular carcinoma. His liver synthetic function is quite good with an albumin of 3.3 and a total protein of 7.3 and an INR of 1.2. These varices were not banded. Current Visit: Yes (3) Acute posthemorrhagic anemia Status: Acute Assessment and plan: No immediate plans to transfuse patient unless his hematocrit drops below 24%. As I doubt this will happen have not written any parameters. He really does not require repeat colonoscopy for at least 5 years i.e. January of 2019. 04/02/17--the patient's hematocrit is remained stable over the last 24 hours. If he is doing this well tomorrow would certainly discharge him to home after the laboratories/ultrasound are completed in working up his cirrhosis. 04/03/17--With the drift in the patient's hematocrit, we will likely want to watch him for another day. Will transfuse 1 unit of packed red blood cells followed by 20 mg of IV Lasix today. I am going to have my partners look in on this patient tomorrow. If he is discharged over the weekend he can follow-up in my office in another one month to 6 weeks. Current Visit: Yes (4) Personal history of colonic polyps Status: Acute Assessment and plan: As mentioned above, repeat colonoscopy in January 2019. 04/02/17--As mentioned above repeat colonoscopy in January 2019 04/03/17--noted above Current Visit: Yes (5) Abnormal weight loss Status: Acute Assessment and plan: This might be due to the patient's underlying depression, there could be gastroparesis present that could be gastritis or peptic ulcer disease or even celiac sprue potentially-- all these can produce anemia and weight loss. We will assess further with upper endoscopy tomorrow morning. 04/02/17--See above--I am going to start the patient back on a renal soft diet and see how he does. 04/03/17--if patient is going to be here for much longer, would suggest teaching a low sodium, renal diet. Agree with use of Lexapro for the patient's underlying depression if this fails we can also consider reamer to help with appetite, depression, and insomnia. (Suggest starting at Remeron 15 mg p.o. nightly). Current Visit: Yes (6) Arteriovenous malformation of colon Status: Acute Assessment and plan: 04/03/17--previously noted on colonoscopy incidentally. Current Visit: Yes (7) Dysphagia Status: Acute Assessment and plan: Patient is having some difficulty swallowing at the level of his oropharynx. This may be due to his dentures to some degree although the patient has also had difficulty with NG tube placement/Dobbhoff placement in the past we will likely use a Savary dilator and dilated his esophagus depending on findings at upper endoscopy. If there is Zenker's here here there will not likely not be much help from dilation--this may potentially require surgery for resection. Further recommendations post upper endoscopy with potential dilation. 04/02/17--this patient did not have any gross evidence of stricturing however in his esophagus he did have some very plump varices present. These actually became paradoxically larger the further up in his chest and we went. Overall I would call them a grade 2. We did not dilate for fear of rupturing these. 04/03/17--No dilation performed due to varices. Again if the patient is discharged over the weekend can follow-up in my office in another 4-6 weeks. Current Visit: Yes (8) GERD (gastroesophageal reflux disease) Status: Acute Assessment and plan: Continue to control acid with Protonix as mentioned above, on a twice daily dosing schedule. Current Visit: Yes Gastroenterology - PN: Subj Interval history: The patient is having no further issues with swallowing, he does have one dark stool, and his hematocrit has dropped somewhat somewhat from 33.1% down to 27.8% . Platelets of also dropped off from 72 down to 56. His INR is normal though at 1.2 as are his liver function tests, including a total protein/albumin level of 7.3/3.3 indicating good synthetic function. Given his recent drop in his hematocrit I would like him to get a unit of blood followed by Buddy. He will need some oral potassium. Ultrasound does show gallstones with no common bile duct dilation and no liver metastases. There does not appear to be any gross evidence of ascites. The patient does have splenomegaly consistent with his underlying cirrhosis and thrombocytopenia. Exam (Progress Note) - Constitutional Vitals: Period Temp Pulse Resp BP Sys/Spring Pulse Ox Last 24 Hr 97.6 F-99.7 F 70-106 16-20 104-145/56-90 96-98 General appearance: no acute distress - Head Head exam: Present: normocephalic - Eye Eye exam: Present: EOMI. Absent: scleral icterus - Respiratory Respiratory exam: Present: clear to auscultation bilaterally. Absent: rhonchi, stridor, wheezes - Cardiovascular Cardiovascular exam: Present: regular rate and rhythm - GI/Abdominal GI/Abdominal exam: Present: normal bowel sounds, soft. Absent: distended, guarding, tenderness, rebound - Extremities Exam Extremities exam: Absent: edema - Neurological Exam Neurological exam: Present: alert, oriented X3 - Skin Skin exam: Present: warm Results - Labs CBC & BMP: 04/03/17 04:21 04/03/17 04:21
[2017-04-03] MEDS ORDERED: FUROSEMIDE 20 MG/2 ML VIAL IV PRN (11:51)
[2017-04-03] MEDS ORDERED: SODIUM CHLORIDE 0.9% 250 ML IV PRN (11:51)
[2017-04-04 04:19] LABS: Basophils % 0.5 % (0.0-0.8); Eosinophils # 0.1 10*3/uL (0.0-0.87); Eosinophils % 2.7 % (0.00-10.9); Hematocrit 29.6 VOL% (42.0-52.0); Immature Granulocytes % 0.2 %; Immature Granulocytes Absolute 0.01 #; Lymphocytes # 0.4 10*3/uL (1.4-4.0); Lymphocytes % 8.6 % (21.2-54.2); Mean Corpuscular HGB Conc 33.8 GM/DL (32-36); Mean Corpuscular Hemoglobin 30 PG (27-34); Mean Corpuscular Volume 89.4 FL (87-102); Mean Platelet Volume 11.4 FL (9.6-12.0); Monocytes # 0.5 10*3/uL (0.11-0.8); Monocytes % 12.3 % (1.7-12.7); Neutrophils # 3.1 10*3/uL (1.4-7.4); Neutrophils % 75.7 % (38.7-73.9); Platelet Count 58 T/CUMM (130-400); Red Blood Count 3.31 MC/CUMM (3.8-5.5); Red Cell Distribution Width 13.9 % (9.3-17.3); White Blood Count 4.1 T/CUMM (4-12)
[2017-04-04 04:29] LABS: INR 1.1; PT Patient Result 12.2 SECS
[2017-04-04 04:52] LABS: Band Neutrophils 3 % (0-10); Eosinophils 2 % (0-10); Lymphocytes 9 % (20-55); Segmented Neutrophils 75 % (50-85); Total Cells Counted 100
[2017-04-04 04:53] LABS: Hypochromasia 2+; Platelet Estimate Decreased
[2017-04-04 05:32] LABS: Calcium 7.8 MG/DL (8.5-10.1); Osmolality,Calculated 288.1 MOS/KG (273-304); Potassium 3.7 MMOL/L (3.5-5.1)
[2017-04-04] MEDS: OXYBUTYNIN 5 MG TABLET PO SCH (08:31)
[2017-04-04] MEDS: PANTOPRAZOLE 40 MG TABLET PO SCH (08:31)
[2017-04-04] MEDS: ESCITALOPRAM 10 MG TABLET PO SCH (08:31)
[2017-04-04] MEDS ORDERED: LEVOFLOXACIN INJ 250 MG in PREMIX 1 EACH IV SCH (09:00)
--- NOTE | 2017-04-04 10:44 | Gastrointestinal Progress Note ---
Assessment and Plan - Time spent with patient Time spent with patient: Greater than 30 minutes (1) Acute upper GI bleed Status: Acute Current Visit: Yes (2) Esophageal varices without bleeding Status: Acute Current Visit: Yes (3) Acute posthemorrhagic anemia Status: Acute Current Visit: Yes (4) Other specified counseling Status: Acute Current Visit: Yes Exam (Progress Note) - Constitutional Vitals: Period Temp Pulse Resp BP Sys/Spring Pulse Ox Last 24 Hr 98.1 F-99.7 F 75-87 18-20 99-137/56-82 93-100 Results - Labs CBC & BMP: 04/04/17 04:05 04/04/17 04:05 Note Addendum: PLEASE NOTE -- automatic citation of patient information is unavoidable in this electronic note. I have made a reasonable effort to review the information cited , but it is not a part of my evaluation, impression, or recommendation unless specifically discussed in the dictated text that follows. As well, voice recognition software was used in the creation of this clinical note. Reasonable effort was made to identify and correct gross errors. Despite proofreading, errors in contractor general engineering may be present, including nonsense verbiage at times. If you encounter such an error, please contact me at for discussion and correction. -- Radha Chief complaint: gastrointestinal bleeding Subjective: the patient is an 86-year-old male seen for follow-up of acute blood loss anemia. The patient underwent upper endoscopy two days ago with finding of unexpected esophageal varices, grade II, without sequela of recent bleeding. The patient also had both gastritis and whatnot us as potential culprits. Blood counts trended down requiring one unit of packed red blood cells and the patient had appropriate response to same. No overt bleeding has been documented overnight. The patient has remained hemodynamically stable. He is comfortable this morning, eating lunch as we visit. Medications: Tylenol, Benadryl, Lexapro, Mucinex, levofloxacin, morphine, Nicoderm, Zofran, oxybutynin, Protonix, normal saline infusion Review of Symptoms: 12 point review of symptoms was negative except as noted above Physical examination: Vital Signs: Current vital signs reviewed. General Appearance: well-appearing. Not acutely ill. Head: Normocephalic. Eyes: no scleral icterus. No scleral injection. No conjunctival pallor. Oral Cavity: Odor of breath was normal. No drooling was observed. Lips showed no abnormalities. Lungs: Respiration rhythm and depth was normal. Cardiovascular: Heart rate and rhythm were normal. Abdomen: abdomen was minimally distended and ascites was equivocal. Abdominal palpation revealed no tenderness and no hepatosplenomegaly. Musculoskeletal System: musculoskeletal system was grossly normal. Neurological: level of consciousness was normal. Speech was normal. No coordination/cerebellum abnormalities were noted. Skin: Gen. appearance was normal. Color and pigmentation were normal. No skin lesions were appreciated. Laboratory: white blood count 4.1, hemoglobin 10.0, hematocrit 29.6, platelets 58, INR 1.1, PT 12.2, ammonia 47 Radiology: ultrasound, April 01, 2017 -- ascites present, splenomegaly, cholelithiasis, infrarenal abdominal aneurysm, hydronephrosis, intact hepatic vasculature, morphologic evidence of cirrhosis not clearly present Impressions: 1. Upper gastrointestinal bleeding -- the patient is not having overt bleeding at present and has responded well to transfusion. I recommend continued monitoring with further transfusion as indicated. I recommend continued proton pump inhibitor. If discharged, the patient will need to follow up with Dr. Crooks for follow-up of this problem and other gastrointestinal diagnoses. 2. Esophageal varices -- the patient had a grade II varices without sequela of recent bleeding. Evaluation to date has not revealed clear etiology for the cirrhosis or portal hypertension. As discussed above, the patient will need to follow up with Dr. Crooks in the outpatient clinic for further evaluation in this regard. 3. Acute blood loss anemia -- the patient has responded well to transfusion. I recommend continued monitoring with further transfusion as indicated. If discharged, it would be prudent to recheck blood counts with in one week to ensure stability. 4. Other specified counseling -- Patient seen for greater than 30 minutes. Greater than 50% of this time was spent counseling regarding differential diagnosis, likely diagnosis,, diagnostic and therapeutic options, risks, benefits, and alternatives to procedures and medications, informed consent, and plan of care generally. Patient has expressed understanding and wishes to proceed. Recommendations: -- continued monitoring of blood counts with further transfusion as indicated -- continued volume management generally -- continue proton pump inhibitor -- if discharged, follow-up with Dr. Crooks in the outpatient clinic for further evaluation of multiple gastrointestinal issues -- we will continue to follow with you
--- NOTE | 2017-04-04 11:33 | Discharge Summary ---
Hospital Course - Hospital Course Hospital Course: Mr. Elias díaz was admitted for evaluation of melena. Patient was seen by gastroenterology consultation. Patient had an EGD which revealed esophageal varices and gastritis. There is suggestion of cirrhosis and a hepatitis panel was performed that was negative. Patient has no significant history of alcohol consumption. His symptoms of melena cleared while hospitalized by discharge met maximum benefit of hospitalization. He received a total of 1 unit packed red blood cells and by discharge was hemodynamically stable. He was noted to have possible pneumonia on chest x-ray was initiated on Levaquin which he will continue at home. He will follow-up with his primary care provider in 1 week in addition to Dr. Crooks in 4-6 weeks. I spent 33 minutes coordinating this discharge. - Time spent with patient Time with patient DS: Greater than 30 minutes Diagnosis - Discharge Diagnosis (1) Pneumonia Status: Acute (2) Acute posthemorrhagic anemia Status: Acute (3) Esophageal varices without bleeding Status: Acute (4) Chronic renal failure Status: Acute Specialty Discharge - Follow Up or Referrals Follow up with: Kashif Crooks MD [Physician] - (Call office on Thursday for follow up in 4-6 Weeks.) Discharge Plan - Discharge Data Disposition: Disch To Home/Self Care Condition at Discharge: Stable Discharge Diet: advance to your usual diet Activity: resume usual activities as tolerated - Discharge Medications New Pantoprazole Tab [Protonix Tab] 40 mg PO BID #60 tablet Levofloxacin Tab [Levaquin Tab] 250 mg PO DAILY #7 tablet Continue metOLazone [Metolazone] 2.5 mg PO QAM Potassium 99 mg PO QAM Escitalopram Oxalate 20 mg PO QAM Furosemide 40 mg PO QAM Cholecalciferol [Vitamin D3] 1,000 unit PO QAM Oxybutynin [Ditropan] 5 mg PO BID Ferrous Sulfate Tab [Feosol Original Tab] 325 mg PO QAM Colestipol HCl 1 gm PO BID - Follow Up or Referral Follow Up: Kashif Crooks MD [Physician] - (Call office on Thursday for follow up in 4-6 Weeks.) - Forms/Instructions Exam - Constitutional Vitals: Period Temp Pulse Resp BP Sys/Spring Pulse Ox Last 24 Hr 98.1 F-99.7 F 75-87 18-20 99-137/56-82 93-100 General appearance: normal weight, no acute distress - Head Head exam: Present: normal inspection, normocephalic, atraumatic - Eye Eye exam: Present: EOMI Pupils: Present: PRIYANKA - ENT ENT exam: Present: normal exam - Neck Neck exam: Present: normal inspection - Respiratory Respiratory exam: Present: clear to auscultation bilaterally. Absent: accessory muscle use, prolonged expiratory phase, wheezes - Cardiovascular Cardiovascular exam: Present: regular rate and rhythm. Absent: bradycardia, irregular rhythm, systolic murmur - GI/Abdominal GI/Abdominal exam: Present: normal bowel sounds. Absent: ascites, distended, hypoactive bowel sounds, tenderness - Extremities Exam Extremities exam: Present: normal inspection Discharge Results Procedures and tests throughout hospitalization: Pending Orders 04/01/17 05:40 Occult Blood, Stool Routine 04/02/17 09:55 [id number], S Routine 04/05/17 04:00 Ammonia IN AM Comp Blood Count Auto Diff IN AM 04/06/17 04:00 Comp Blood Count Auto Diff IN AM Labs on day of discharge: Labs from last 24 hours 04/04/17 04/04/17 04/04/17 04:05 04:05 04:05 WBC 4.1 RBC 3.31 L Hgb 10.0 L Hct 29.6 L MCV 89.4 MCH 30 MCHC 33.8 RDW 13.9 Plt Count 58 L MPV 11.4 Neut % (Auto) 75.7 H Lymph % (Auto) 8.6 L Rabun % (Auto) 12.3 Eos % (Auto) 2.7 Baso % (Auto) 0.5 Neut # (Auto) 3.1 Lymph # (Auto) 0.4 L Rabun # (Auto) 0.5 Eos # (Auto) 0.1 Baso # (Auto) 0.0 Total Counted 100 Immature Gran % 0.2 Nucleated RBC % 0.0 Immature Gran # 0.01 Segmented Neutrophils 75 Band Neutrophils 3 Lymphocytes 9 L Monocytes 11 Eosinophils 2 Nucleated RBCs # 0.00 Platelet Estimate Decreased Hypochromasia 2+ INR 1.1 PT Patient/Control Mix 12.2 Sodium Potassium Chloride Carbon Dioxide Anion Gap BUN Creatinine GFR Calculation BUN/Creatinine Ratio Glucose Calculated Osmolality Calcium Ammonia 47 H Blood Type Antibody Screen Crossmatch Blood Bank Comment 04/04/17 04/03/17 04/03/17 04:05 Unknown Unknown WBC RBC Hgb Hct MCV MCH MCHC RDW Plt Count MPV Neut % (Auto) Lymph % (Auto) Rabun % (Auto) Eos % (Auto) Baso % (Auto) Neut # (Auto) Lymph # (Auto) Rabun # (Auto) Eos # (Auto) Baso # (Auto) Total Counted Immature Gran % Nucleated RBC % Immature Gran # Segmented Neutrophils Band Neutrophils Lymphocytes Monocytes Eosinophils Nucleated RBCs # Platelet Estimate Hypochromasia INR PT Patient/Control Mix Sodium 142 Potassium 3.7 Chloride 110 H Carbon Dioxide 24 Anion Gap 11.7 BUN 25 H Creatinine 1.60 H GFR Calculation 43 BUN/Creatinine Ratio 15.00 Glucose 143 H Calculated Osmolality 288.1 Calcium 7.8 L Ammonia Blood Type B NEGATIVE Cancelled Antibody Screen Cancelled Crossmatch See Detail Blood Bank Comment Cancelled DS: Provider Date of admission: 04/01/17 12:29 Primary care physician: . No PCP Attending physician on admission: Buffy Wheeler MD Consults: 04/01/17 13:44 Consult to Physician [CONS] Routine Comment: pt of yours admitted w gib Consulting Provider: Kashif Crooks When should Consulting Provider be notified: Now Person Notified: dipti Date Notified: 04/01/17 Time Notified: 14:51 04/01/17 14:53 Consult to Dietitian [CONS] Routine Reason for Dietitian: Other Consult Comment: 25 pound weight loss in 2 months 04/01/17 17:57 Consult to Anesthesiology [CONS] Routine Consulting Provider: Reason for Anesthesiology: Pre-op Clearance Discharging clinician: Buffy Wheeler MD Expected date of discharge: 04/04/17
[2017-04-04 12:58] VITALS: BP 129/75
== END 2017-04-04 12:51 | disposition home health service (06) | DRG 377 ==
LOC: EDUNIT# → N.ED 10:10 → N.EDINP 12:29 → N.2E 14:18
PROVIDERS: ADMIT Internal Medicine; ATTEND Internal Medicine

== ENCOUNTER 2017-08-28 07:30 | Inpatient (IN) ==
[2017-08-28 08:17] LABS: Basophils % 0.1 % (0.0-0.8); Eosinophils % 0.1 % (0.00-10.9); Hematocrit 34.1 VOL% (42.0-52.0); Hemoglobin 11.1 GM/DL (14.0-18.0); Immature Granulocytes % 0.4 %; Immature Granulocytes Absolute 0.04 #; Lymphocytes % 10.1 % (21.2-54.2); Mean Corpuscular HGB Conc 32.6 GM/DL (32-36); Mean Corpuscular Hemoglobin 29 PG (27-34); Mean Corpuscular Volume 88.1 FL (87-102); Mean Platelet Volume 10.1 FL (9.6-12.0); Monocytes % 10.1 % (1.7-12.7); Neutrophils # 7.4 10*3/uL (1.4-7.4); Neutrophils % 79.2 % (38.7-73.9); Platelet Count 82 T/CUMM (130-400); Red Blood Count 3.87 MC/CUMM (3.8-5.5); White Blood Count 9.4 T/CUMM (4-12)
[2017-08-28 08:46] LABS: Albumin 2.6 G/DL (3.4-5.0); Anisocytosis 1+; Bilirubin,Total 1.4 MG/DL (0.2-1.0); Calcium 8.5 MG/DL (8.5-10.1); Osmolality,Calculated 281.7 MOS/KG (273-304); Poikilocytosis 1+; Potassium 3.8 MMOL/L (3.5-5.1); Total Protein 6.7 G/DL (6.4-8.3)
[2017-08-28 08:47] LABS: Acanthocytes 1+; Troponin I Only < 0.015 NG/ML (0.00-0.045)
[2017-08-28 08:49] LABS: INR 1.1; Lactic Acid 2.1 MMOL/L (0.4-2.0)
[2017-08-28 08:51] LABS: Ammonia 10 UMOL/L (11-32)
[2017-08-28 08:51] LABS: Apearance,Urine CLOUDY (Clear); Bacteria,Urine Occasional /HPF (Few); Bilirubin,Urine Negative (Negative); Blood, Urine Moderate mg/dL (Negative); Glucose,Urine (UA) Negative (Negative); Ketones,Urine Negative (Negative); Mucus,Urine Occasional /LPF (Occasional); Nitrite,Urine Negative (Negative); Protein,Urine Negative; RBC,Urine 144 /HPF (0-4); Urine Color Yellow (Yellow); Urine Specific Gravity 1.017 (1.001-1.035); Urine Urobilinogen < 2.0 EU/DL (0.2-1.0); WBC,Urine 50 /HPF (0-6)
[2017-08-28] MEDS ORDERED: LEVOFLOXACIN INJ 500 MG in PREMIX 1 EACH IV STA (09:07)
[2017-08-28] MEDS ORDERED: SODIUM CHLORIDE 0.9% 250 ML IV STA (09:07)
[2017-08-28] MEDS ORDERED: LEVOFLOXACIN INJ 100 ML IV ONE (09:08)
[2017-08-28] MEDS ORDERED: MORPHINE 2 MG/1 ML SYRINGE IV PRN (14:04)
[2017-08-28] MEDS ORDERED: ONDANSETRON 4 MG/2 ML VIAL IV PRN (14:04)
[2017-08-28] MEDS ORDERED: FUROSEMIDE 40 MG/4 ML VIAL IV ONE (14:10)
[2017-08-28] MEDS: PANTOPRAZOLE 40 MG TABLET PO SCH (15:22)
[2017-08-28] MEDS: ENOXAPARIN 40 MG/0.4 ML SYRINGE SUBCUT SCH (15:22)
[2017-08-28 17:41] LABS: Albumin 2.7 G/DL (3.4-5.0); Bilirubin,Direct 0.27 MG/DL (0.0-0.20); Bilirubin,Total 1.3 MG/DL (0.2-1.0); Total Protein 6.8 G/DL (6.4-8.3)
[2017-08-28] MEDS: ACETAMINOPHEN 325 MG TABLET PO PRN (20:01)
[2017-08-29 04:16] LABS: Basophils % 0.2 % (0.0-0.8); Hematocrit 30.2 VOL% (42.0-52.0); Hemoglobin 9.9 GM/DL (14.0-18.0); Immature Granulocytes % 0.4 %; Immature Granulocytes Absolute 0.02 #; Lymphocytes # 0.3 10*3/uL (1.4-4.0); Lymphocytes % 5.5 % (21.2-54.2); Mean Corpuscular HGB Conc 32.8 GM/DL (32-36); Mean Corpuscular Hemoglobin 29 PG (27-34); Mean Corpuscular Volume 87.3 FL (87-102); Mean Platelet Volume 11.2 FL (9.6-12.0); Monocytes # 0.7 10*3/uL (0.11-0.8); Monocytes % 12.4 % (1.7-12.7); Neutrophils # 4.5 10*3/uL (1.4-7.4); Neutrophils % 81.5 % (38.7-73.9); Platelet Count 65 T/CUMM (130-400); Red Blood Count 3.46 MC/CUMM (3.8-5.5); White Blood Count 5.5 T/CUMM (4-12)
[2017-08-29 04:37] LABS: Osmolality,Calculated 282.5 MOS/KG (273-304); Potassium 3.8 MMOL/L (3.5-5.1)
[2017-08-29 05:51] LABS: Burr Cells Slight; Hypochromasia 1+; Lymphocytes 3 % (20-55); Ovalocytes Slight; Platelet Estimate Decreased; Segmented Neutrophils 87 % (50-85); Total Cells Counted 100
[2017-08-29 05:52] LABS: Giant Platelets Few
[2017-08-29] MEDS: PANTOPRAZOLE 40 MG TABLET PO SCH (10:25)
[2017-08-29] MEDS: LEVOFLOXACIN INJ 500 MG in PREMIX 1 EACH IV SCH (10:25)
[2017-08-29] MEDS: ENOXAPARIN 40 MG/0.4 ML SYRINGE SUBCUT SCH (14:39)
[2017-08-29] MEDS: ACETAMINOPHEN 325 MG TABLET PO PRN ×2 (15:01→23:10)
[2017-08-30 06:17] LABS: Eosinophils % 0.4 % (0.00-10.9); Hematocrit 29.1 VOL% (42.0-52.0); Hemoglobin 9.8 GM/DL (14.0-18.0); Immature Granulocytes % 0.7 %; Immature Granulocytes Absolute 0.03 #; Lymphocytes # 0.3 10*3/uL (1.4-4.0); Lymphocytes % 5.8 % (21.2-54.2); Mean Corpuscular HGB Conc 33.7 GM/DL (32-36); Mean Corpuscular Hemoglobin 29 PG (27-34); Mean Corpuscular Volume 86.9 FL (87-102); Mean Platelet Volume 11.9 FL (9.6-12.0); Monocytes # 0.5 10*3/uL (0.11-0.8); Monocytes % 11.3 % (1.7-12.7); Neutrophils # 3.7 10*3/uL (1.4-7.4); Neutrophils % 81.8 % (38.7-73.9); Red Blood Count 3.35 MC/CUMM (3.8-5.5); Red Cell Distribution Width 13.8 % (9.3-17.3); White Blood Count 4.5 T/CUMM (4-12)
[2017-08-30 06:18] LABS: Platelet Count 70 T/CUMM (130-400)
[2017-08-30 06:46] LABS: Calcium 8.2 MG/DL (8.5-10.1); Osmolality,Calculated 281.7 MOS/KG (273-304); Potassium 3.7 MMOL/L (3.5-5.1)
[2017-08-30 06:55] LABS: Burr Cells Slight; Giant Platelets Few; Hypochromasia Slight; Lymphocytes 4 % (20-55); Ovalocytes Slight; Platelet Estimate Decreased; Segmented Neutrophils 84 % (50-85); Total Cells Counted 100
[2017-08-30] MEDS: PANTOPRAZOLE 40 MG TABLET PO SCH (09:16)
[2017-08-30] MEDS: LEVOFLOXACIN INJ 500 MG in PREMIX 1 EACH IV SCH (09:18)
[2017-08-30] MEDS: ACETAMINOPHEN 325 MG TABLET PO PRN ×3 (09:20→23:05)
[2017-08-30] MEDS: ENOXAPARIN 40 MG/0.4 ML SYRINGE SUBCUT SCH (15:10)
[2017-08-30] MEDS: ESCITALOPRAM 10 MG TABLET PO SCH (18:30)
[2017-08-31 04:58] LABS: Eosinophils % 0.8 % (0.00-10.9); Hematocrit 29.2 VOL% (42.0-52.0); Hemoglobin 9.9 GM/DL (14.0-18.0); Immature Granulocytes % 0.5 %; Immature Granulocytes Absolute 0.02 #; Lymphocytes # 0.3 10*3/uL (1.4-4.0); Lymphocytes % 7.1 % (21.2-54.2); Mean Corpuscular HGB Conc 33.9 GM/DL (32-36); Mean Corpuscular Hemoglobin 29 PG (27-34); Mean Corpuscular Volume 85.9 FL (87-102); Mean Platelet Volume 10.8 FL (9.6-12.0); Monocytes # 0.4 10*3/uL (0.11-0.8); Monocytes % 11.1 % (1.7-12.7); Neutrophils # 3.2 10*3/uL (1.4-7.4); Neutrophils % 80.5 % (38.7-73.9); Platelet Count 86 T/CUMM (130-400); Red Cell Distribution Width 13.7 % (9.3-17.3)
[2017-08-31 05:25] LABS: Calcium 8.1 MG/DL (8.5-10.1); Potassium 3.8 MMOL/L (3.5-5.1)
[2017-08-31 05:36] LABS: Free T4 (Free Thyroxine) 1.23 NG/DL (0.76-1.46); T4 (Thyroxine) 7.4 UG/DL (4.7-13.3); Thyroid Stimulating Hormone 1.58 uIU/ml (0.358-3.74)
[2017-08-31 06:02] LABS: Lymphocytes 3 % (20-55); Segmented Neutrophils 91 % (50-85); Total Cells Counted 100
[2017-08-31 06:03] LABS: Giant Platelets Few; Hypochromasia 1+; Ovalocytes Slight; Platelet Estimate Decreased
[2017-08-31] MEDS: PANTOPRAZOLE 40 MG TABLET PO SCH (09:20)
[2017-08-31] MEDS: ESCITALOPRAM 10 MG TABLET PO SCH (09:20)
[2017-08-31] MEDS: LEVOFLOXACIN INJ 500 MG in PREMIX 1 EACH IV SCH (09:20)
[2017-08-31] MEDS: ENOXAPARIN 40 MG/0.4 ML SYRINGE SUBCUT SCH (14:08)
[2017-09-01] MEDS: ESCITALOPRAM 10 MG TABLET PO SCH (08:36)
[2017-09-01] MEDS: PANTOPRAZOLE 40 MG TABLET PO SCH (08:36)
[2017-09-01] MEDS: LEVOFLOXACIN INJ 500 MG in PREMIX 1 EACH IV SCH (08:38)
[2017-09-01] MEDS: ENOXAPARIN 40 MG/0.4 ML SYRINGE SUBCUT SCH (13:57)
[2017-09-01] MEDS: ACETAMINOPHEN 325 MG TABLET PO PRN (19:32)
[2017-09-02 06:48] LABS: Basophils % 0.2 % (0.0-0.8); Eosinophils # 0.1 10*3/uL (0.0-0.87); Eosinophils % 1.5 % (0.00-10.9); Hematocrit 28.3 VOL% (42.0-52.0); Hemoglobin 9.4 GM/DL (14.0-18.0); Immature Granulocytes % 0.5 %; Immature Granulocytes Absolute 0.02 #; Lymphocytes # 0.2 10*3/uL (1.4-4.0); Lymphocytes % 5.7 % (21.2-54.2); Mean Corpuscular HGB Conc 33.2 GM/DL (32-36); Mean Corpuscular Hemoglobin 29 PG (27-34); Mean Corpuscular Volume 85.8 FL (87-102); Mean Platelet Volume 11.2 FL (9.6-12.0); Monocytes # 0.6 10*3/uL (0.11-0.8); Monocytes % 14.6 % (1.7-12.7); Neutrophils # 3.1 10*3/uL (1.4-7.4); Neutrophils % 77.5 % (38.7-73.9); Platelet Count 86 T/CUMM (130-400); Red Cell Distribution Width 13.7 % (9.3-17.3); White Blood Count 4.1 T/CUMM (4-12)
[2017-09-02 07:09] LABS: Anisocytosis 1+; Poikilocytosis 1+
[2017-09-02 07:18] LABS: Bilirubin,Total 1.1 MG/DL (0.2-1.0); Calcium 8.3 MG/DL (8.5-10.1); Magnesium 1.8 MG/DL (1.8-2.4); Osmolality,Calculated 277.8 MOS/KG (273-304); Phosphorous 2.5 MG/DL (2.5-4.9); Potassium 3.7 MMOL/L (3.5-5.1); Total Protein 5.9 G/DL (6.4-8.3)
[2017-09-02] MEDS: PANTOPRAZOLE 40 MG TABLET PO SCH (09:25)
[2017-09-02] MEDS: ESCITALOPRAM 10 MG TABLET PO SCH (09:25)
[2017-09-02] MEDS: LEVOFLOXACIN INJ 500 MG in PREMIX 1 EACH IV SCH (09:26)
[2017-09-02] MEDS: ENOXAPARIN 40 MG/0.4 ML SYRINGE SUBCUT SCH (14:58)
[2017-09-03] MEDS: LEVOFLOXACIN INJ 500 MG in PREMIX 1 EACH IV SCH (09:29)
[2017-09-03] MEDS: ESCITALOPRAM 10 MG TABLET PO SCH (09:29)
[2017-09-03] MEDS: PANTOPRAZOLE 40 MG TABLET PO SCH (09:29)
[2017-09-03 11:16] VITALS: BP 104/59
[2017-09-03] MEDS: ENOXAPARIN 40 MG/0.4 ML SYRINGE SUBCUT SCH (14:58)
== END 2017-09-03 15:00 | DRG 194 ==
LOC: EDUNIT# → N.ED 07:30 → SUATTDRO 10:41 → N.EDINP 10:41 → N.3E 12:02
PROVIDERS: ATTEND Internal Medicine

== ENCOUNTER 2017-11-03 11:42 | Inpatient (IN) ==
[2017-11-03] MEDS ORDERED: ONDANSETRON 4 MG/2 ML VIAL IV PRN (18:03)
[2017-11-03] MEDS ORDERED: MORPHINE 2 MG/1 ML SYRINGE IV PRN (18:03)
[2017-11-03] MEDS ORDERED: ACETAMINOPHEN 325 MG TABLET PO PRN (18:03)
[2017-11-03 18:53] LABS: Basophils % 0.5 % (0.0-0.8); Eosinophils # 0.1 10*3/uL (0.0-0.87); Eosinophils % 2.8 % (0.00-10.9); Hematocrit 29.7 VOL% (42.0-52.0); Hemoglobin 9.5 GM/DL (14.0-18.0); Immature Granulocytes % 0.3 %; Immature Granulocytes Absolute 0.01 #; Lymphocytes # 0.5 10*3/uL (1.4-4.0); Lymphocytes % 11.8 % (21.2-54.2); Mean Corpuscular Hemoglobin 28 PG (27-34); Mean Corpuscular Volume 88.7 FL (87-102); Mean Platelet Volume 9.9 FL (9.6-12.0); Monocytes # 0.5 10*3/uL (0.11-0.8); Monocytes % 12.1 % (1.7-12.7); Neutrophils # 2.8 10*3/uL (1.4-7.4); Neutrophils % 72.5 % (38.7-73.9); Platelet Count 82 T/CUMM (130-400); Red Blood Count 3.35 MC/CUMM (3.8-5.5); Red Cell Distribution Width 16.1 % (9.3-17.3); White Blood Count 3.9 T/CUMM (4-12)
[2017-11-03 19:16] LABS: Albumin 2.2 G/DL (3.4-5.0); Bilirubin,Total 0.6 MG/DL (0.2-1.0); Osmolality,Calculated 279.5 MOS/KG (273-304); Potassium 3.5 MMOL/L (3.5-5.1); Total Protein 6.1 G/DL (6.4-8.3)
[2017-11-03] MEDS: FUROSEMIDE 40 MG/4 ML VIAL IV SCH (20:00)
[2017-11-03 21:12] LABS: Apearance,Urine CLEAR (Clear); Bilirubin,Urine Negative (Negative); Blood, Urine Small mg/dL (Negative); Glucose,Urine (UA) Negative (Negative); Hyaline Casts,Urine 4 /LPF (0-3); Ketones,Urine Negative (Negative); Mucus,Urine Occasional /LPF (Occasional); Nitrite,Urine Negative (Negative); Protein,Urine Negative; RBC,Urine 13 /HPF (0-4); Squamous Epithelial Cell,Urine Occasional /HPF (0-10); Urine Color Yellow (Yellow); Urine Specific Gravity 1.015 (1.001-1.035); Urine Urobilinogen < 2.0 EU/DL (0.2-1.0); WBC,Urine 5 /HPF (0-6)
[2017-11-03] MEDS: COLESTIPOL 1 GM TABLET PO SCH (21:55)
[2017-11-03] MEDS: OXYBUTYNIN 5 MG TABLET PO SCH (21:55)
[2017-11-04 06:25] LABS: Basophils % 0.5 % (0.0-0.8); Eosinophils % 0.7 % (0.00-10.9); Hemoglobin 10.9 GM/DL (14.0-18.0); Immature Granulocytes % 0.5 %; Immature Granulocytes Absolute 0.02 #; Lymphocytes # 0.4 10*3/uL (1.4-4.0); Lymphocytes % 8.8 % (21.2-54.2); Mean Corpuscular Hemoglobin 29 PG (27-34); Mean Corpuscular Volume 86.8 FL (87-102); Mean Platelet Volume 10.5 FL (9.6-12.0); Monocytes # 0.5 10*3/uL (0.11-0.8); Monocytes % 10.8 % (1.7-12.7); Neutrophils # 3.5 10*3/uL (1.4-7.4); Neutrophils % 78.7 % (38.7-73.9); White Blood Count 4.4 T/CUMM (4-12)
[2017-11-04 06:31] LABS: Platelet Count 85 T/CUMM (130-400)
[2017-11-04 06:48] LABS: Elliptocytes Few; Giant Platelets Few; Hypochromasia 1+; Platelet Estimate Decreased
[2017-11-04 06:52] LABS: Calcium 8.1 MG/DL (8.5-10.1); Osmolality,Calculated 282.4 MOS/KG (273-304)
[2017-11-04] MEDS: OXYBUTYNIN 5 MG TABLET PO SCH ×2 (08:10→21:02)
[2017-11-04] MEDS: FERROUS SULFATE 325 MG TABLET PO SCH (08:10)
[2017-11-04] MEDS: COLESTIPOL 1 GM TABLET PO SCH ×2 (08:10→21:02)
[2017-11-04] MEDS: ESCITALOPRAM 10 MG TABLET PO SCH (08:11)
[2017-11-04] MEDS: POTASSIUM GLUCONATE 500 MG TABLET PO SCH (08:11)
[2017-11-04] MEDS: PANTOPRAZOLE 40 MG TABLET PO SCH (08:11)
[2017-11-04] MEDS: TAMSULOSIN 0.4 MG CAPSULE PO SCH (08:11)
[2017-11-04] MEDS: FUROSEMIDE 40 MG/4 ML VIAL IV SCH ×2 (08:59→15:40)
[2017-11-04 12:01] LABS: Neutrophils,Peritoneal Fluid 7 %; RBC,Peritoneal Fluid 134 T/CUMM
[2017-11-04] MEDS: SPIRONOLACTONE 50 MG TABLET PO SCH (21:02)
[2017-11-05 06:32] LABS: Basophils % 0.2 % (0.0-0.8); Eosinophils # 0.1 10*3/uL (0.0-0.87); Hematocrit 30.6 VOL% (42.0-52.0); Hemoglobin 10.2 GM/DL (14.0-18.0); Immature Granulocytes % 0.2 %; Immature Granulocytes Absolute 0.01 #; Lymphocytes # 0.5 10*3/uL (1.4-4.0); Lymphocytes % 10.5 % (21.2-54.2); Mean Corpuscular HGB Conc 33.3 GM/DL (32-36); Mean Corpuscular Hemoglobin 29 PG (27-34); Mean Corpuscular Volume 86.4 FL (87-102); Mean Platelet Volume 10.6 FL (9.6-12.0); Monocytes # 0.5 10*3/uL (0.11-0.8); Monocytes % 10.3 % (1.7-12.7); Neutrophils # 3.9 10*3/uL (1.4-7.4); Neutrophils % 77.8 % (38.7-73.9); Red Blood Count 3.54 MC/CUMM (3.8-5.5); Red Cell Distribution Width 15.8 % (9.3-17.3)
[2017-11-05 06:36] LABS: Platelet Count 85 T/CUMM (130-400)
[2017-11-05 06:48] LABS: Calcium 7.8 MG/DL (8.5-10.1); Magnesium 1.9 MG/DL (1.8-2.4); Osmolality,Calculated 275.8 MOS/KG (273-304); Potassium 3.6 MMOL/L (3.5-5.1)
[2017-11-05 06:58] LABS: Giant Platelets Few; Hypochromasia 1+; Ovalocytes Slight; Platelet Estimate Decreased
[2017-11-05] MEDS: OXYBUTYNIN 5 MG TABLET PO SCH (09:21)
[2017-11-05] MEDS: COLESTIPOL 1 GM TABLET PO SCH (09:21)
[2017-11-05] MEDS: TAMSULOSIN 0.4 MG CAPSULE PO SCH (09:21)
[2017-11-05] MEDS: ESCITALOPRAM 10 MG TABLET PO SCH (09:21)
[2017-11-05] MEDS: SPIRONOLACTONE 50 MG TABLET PO SCH (09:21)
[2017-11-05] MEDS: POTASSIUM GLUCONATE 500 MG TABLET PO SCH (09:21)
[2017-11-05] MEDS: PANTOPRAZOLE 40 MG TABLET PO SCH (09:21)
[2017-11-05] MEDS: FERROUS SULFATE 325 MG TABLET PO SCH (09:21)
[2017-11-05] MEDS: FUROSEMIDE 40 MG/4 ML VIAL IV SCH (09:29)
[2017-11-05 11:48] VITALS: BP 106/66
== END 2017-11-05 15:10 | disposition home health service (06) | DRG 433 ==
LOC: SUATTDRO 15:33 → N.3E 15:33

== ENCOUNTER 2017-11-21 15:20 | Inpatient (IN) ==
[2017-11-21 16:32] LABS: Basophils % 0.4 % (0.0-0.8); Eosinophils # 0.1 10*3/uL (0.0-0.87); Hematocrit 31.4 VOL% (42.0-52.0); Hemoglobin 10.1 GM/DL (14.0-18.0); Immature Granulocytes % 0.4 %; Immature Granulocytes Absolute 0.02 #; Lymphocytes # 0.3 10*3/uL (1.4-4.0); Lymphocytes % 5.7 % (21.2-54.2); Mean Corpuscular HGB Conc 32.2 GM/DL (32-36); Mean Corpuscular Hemoglobin 29 PG (27-34); Mean Corpuscular Volume 89.2 FL (87-102); Mean Platelet Volume 10.3 FL (9.6-12.0); Monocytes # 0.4 10*3/uL (0.11-0.8); Monocytes % 8.7 % (1.7-12.7); Neutrophils # 4.2 10*3/uL (1.4-7.4); Neutrophils % 83.8 % (38.7-73.9); Red Blood Count 3.52 MC/CUMM (3.8-5.5); Red Cell Distribution Width 15.6 % (9.3-17.3); White Blood Count 5.1 T/CUMM (4-12)
[2017-11-21 16:36] LABS: Platelet Count 86 T/CUMM (130-400)
[2017-11-21 16:54] LABS: Albumin 2.3 G/DL (3.4-5.0); Bilirubin,Total 0.7 MG/DL (0.2-1.0); Calcium 7.9 MG/DL (8.5-10.1); Osmolality,Calculated 279.7 MOS/KG (273-304); Potassium 4.1 MMOL/L (3.5-5.1)
[2017-11-21 17:03] LABS: Platelet Estimate Decreased
[2017-11-21] MEDS ORDERED: ALBUTEROL/IPRATROPIUM 3 ML NEB RESP TX STA (17:08)
[2017-11-21] MEDS ORDERED: FUROSEMIDE 40 MG/4 ML VIAL IV STA (17:08)
[2017-11-21 17:43] LABS: Lactic Acid 2.1 MMOL/L (0.4-2.0)
[2017-11-21] MEDS ORDERED: FUROSEMIDE 40 MG/4 ML VIAL ONE (18:06)
[2017-11-21 18:12] LABS: Troponin I Only < 0.015 NG/ML (0.00-0.045)
[2017-11-21 19:02] LABS: Apearance,Urine CLEAR (Clear); Bilirubin,Urine Negative (Negative); Blood, Urine Moderate mg/dL (Negative); Glucose,Urine (UA) Negative (Negative); Hyaline Casts,Urine 1 /LPF (0-3); Ketones,Urine Negative (Negative); Nitrite,Urine Negative (Negative); Protein,Urine Negative; RBC,Urine 17 /HPF (0-4); Urine Color Straw (Yellow); Urine Specific Gravity 1.005 (1.001-1.035); Urine Urobilinogen < 2.0 EU/DL (0.2-1.0); WBC,Urine 6 /HPF (0-6)
[2017-11-21] MEDS ORDERED: LEVOFLOXACIN INJ 500 MG in PREMIX 1 EACH IV STA (20:19)
[2017-11-21] MEDS ORDERED: LEVOFLOXACIN INJ 100 ML IV ONE (20:23)
[2017-11-21 20:45] LABS: ABG Base Excess 1.2 MMOL/L (-2.5-2.5); ABG HCO3 23.7 MMOL/L (20-26); ABG Oxygen Saturation 96.6 % (95-100); ABG PCO2 30.2 MM HG (35-48); ABG PH 7.512 (7.35-7.45); ABG PO2 85.9 MM HG (80-95); ABG TCO2 24.6 MMOL/L (23-27)
[2017-11-22 02:05] LABS: Barbiturates Screen,Urine Negative (Negative); Benzodiazepines Screen,Urine Negative (Negative); Cannabinoid Screen,Urine Negative (Negative); Opiate Screen,Urine Negative (Negative); Phencyclidine Screen,Urine Negative (Negative)
[2017-11-22] MEDS: LEVOFLOXACIN INJ 250 MG in PREMIX 1 EACH IV SCH (20:41)
[2017-11-22] MEDS: SPIRONOLACTONE 50 MG TABLET PO SCH (20:42)
[2017-11-22] MEDS: OXYBUTYNIN 5 MG TABLET PO SCH (20:42)
[2017-11-22] MEDS: COLESTIPOL 1 GM TABLET PO SCH (20:42)
[2017-11-23] MEDS: FERROUS SULFATE 325 MG TABLET PO SCH (09:43)
[2017-11-23] MEDS: TAMSULOSIN 0.4 MG CAPSULE PO SCH (09:43)
[2017-11-23] MEDS: SPIRONOLACTONE 50 MG TABLET PO SCH ×2 (09:43→20:53)
[2017-11-23] MEDS: COLESTIPOL 1 GM TABLET PO SCH ×2 (09:43→20:53)
[2017-11-23] MEDS: CHOLECALCIFEROL 1,000 UNIT TABLET PO SCH (09:43)
[2017-11-23] MEDS: OXYBUTYNIN 5 MG TABLET PO SCH ×2 (09:43→20:53)
[2017-11-23] MEDS: FUROSEMIDE 40 MG TABLET PO SCH (09:43)
[2017-11-23] MEDS: ESCITALOPRAM 10 MG TABLET PO SCH (09:43)
[2017-11-23] MEDS: PANTOPRAZOLE 40 MG TABLET PO SCH (09:44)
[2017-11-23 10:47] LABS: Basophils % 0.5 % (0.0-0.8); Eosinophils # 0.1 10*3/uL (0.0-0.87); Eosinophils % 1.6 % (0.00-10.9); Hematocrit 31.4 VOL% (42.0-52.0); Immature Granulocytes % 0.5 %; Immature Granulocytes Absolute 0.02 #; Lymphocytes # 0.3 10*3/uL (1.4-4.0); Mean Corpuscular HGB Conc 31.8 GM/DL (32-36); Mean Corpuscular Hemoglobin 28 PG (27-34); Mean Corpuscular Volume 88.7 FL (87-102); Mean Platelet Volume 9.9 FL (9.6-12.0); Monocytes # 0.5 10*3/uL (0.11-0.8); Monocytes % 11.5 % (1.7-12.7); Neutrophils # 3.5 10*3/uL (1.4-7.4); Neutrophils % 78.9 % (38.7-73.9); Red Blood Count 3.54 MC/CUMM (3.8-5.5); Red Cell Distribution Width 15.4 % (9.3-17.3); White Blood Count 4.4 T/CUMM (4-12)
[2017-11-23 10:51] LABS: Platelet Count 89 T/CUMM (130-400)
[2017-11-23 11:15] LABS: Calcium 8.2 MG/DL (8.5-10.1); Magnesium 1.9 MG/DL (1.8-2.4); Osmolality,Calculated 279.7 MOS/KG (273-304)
[2017-11-23 12:17] LABS: Hypochromasia 1+; Microcytosis Slight; Ovalocytes Few
[2017-11-23 12:18] LABS: Platelet Estimate Decreased
[2017-11-23] MEDS: LEVOFLOXACIN INJ 250 MG in PREMIX 1 EACH IV SCH (20:53)
[2017-11-24 06:09] LABS: Basophils % 0.6 % (0.0-0.8); Eosinophils # 0.1 10*3/uL (0.0-0.87); Hematocrit 28.5 VOL% (42.0-52.0); Hemoglobin 9.5 GM/DL (14.0-18.0); Immature Granulocytes % 0.6 %; Immature Granulocytes Absolute 0.02 #; Lymphocytes # 0.4 10*3/uL (1.4-4.0); Lymphocytes % 10.5 % (21.2-54.2); Mean Corpuscular HGB Conc 33.3 GM/DL (32-36); Mean Corpuscular Hemoglobin 29 PG (27-34); Mean Corpuscular Volume 86.4 FL (87-102); Mean Platelet Volume 10.4 FL (9.6-12.0); Monocytes # 0.5 10*3/uL (0.11-0.8); Monocytes % 13.8 % (1.7-12.7); Neutrophils # 2.6 10*3/uL (1.4-7.4); Neutrophils % 72.5 % (38.7-73.9); Platelet Count 78 T/CUMM (130-400); Red Cell Distribution Width 15.6 % (9.3-17.3); White Blood Count 3.5 T/CUMM (4-12)
[2017-11-24 06:28] LABS: Hypochromasia 1+; Ovalocytes Slight
[2017-11-24 06:29] LABS: Burr Cells Slight; Microcytosis Slight; Platelet Estimate Decreased
[2017-11-24 06:30] LABS: Osmolality,Calculated 282.4 MOS/KG (273-304); Potassium 4.5 MMOL/L (3.5-5.1)
[2017-11-24] MEDS ORDERED: TUBERCULIN SKIN TEST 0.1 ML SYRINGE INTRADERM ONE (08:36)
[2017-11-24] MEDS: CHOLECALCIFEROL 1,000 UNIT TABLET PO SCH (08:59)
[2017-11-24] MEDS: OXYBUTYNIN 5 MG TABLET PO SCH ×2 (08:59→20:38)
[2017-11-24] MEDS: ESCITALOPRAM 10 MG TABLET PO SCH (08:59)
[2017-11-24] MEDS: COLESTIPOL 1 GM TABLET PO SCH ×2 (09:00→20:37)
[2017-11-24] MEDS: FUROSEMIDE 40 MG TABLET PO SCH (09:00)
[2017-11-24] MEDS: FERROUS SULFATE 325 MG TABLET PO SCH (09:00)
[2017-11-24] MEDS: PANTOPRAZOLE 40 MG TABLET PO SCH (09:00)
[2017-11-24] MEDS: TAMSULOSIN 0.4 MG CAPSULE PO SCH (09:00)
[2017-11-24] MEDS: SPIRONOLACTONE 50 MG TABLET PO SCH ×2 (09:00→20:38)
[2017-11-24] MEDS: MEMANTINE 5 MG TABLET PO SCH (20:37)
[2017-11-24] MEDS: LEVOFLOXACIN INJ 250 MG in PREMIX 1 EACH IV SCH (20:38)
[2017-11-25 06:28] LABS: Basophils % 0.6 % (0.0-0.8); Eosinophils # 0.1 10*3/uL (0.0-0.87); Hematocrit 29.7 VOL% (42.0-52.0); Hemoglobin 9.6 GM/DL (14.0-18.0); Immature Granulocytes % 0.3 %; Immature Granulocytes Absolute 0.01 #; Lymphocytes # 0.3 10*3/uL (1.4-4.0); Lymphocytes % 8.6 % (21.2-54.2); Mean Corpuscular HGB Conc 32.3 GM/DL (32-36); Mean Corpuscular Hemoglobin 29 PG (27-34); Mean Corpuscular Volume 88.1 FL (87-102); Mean Platelet Volume 9.9 FL (9.6-12.0); Monocytes # 0.4 10*3/uL (0.11-0.8); Monocytes % 11.5 % (1.7-12.7); Neutrophils # 2.7 10*3/uL (1.4-7.4); Platelet Count 79 T/CUMM (130-400); Red Blood Count 3.37 MC/CUMM (3.8-5.5); Red Cell Distribution Width 15.4 % (9.3-17.3); White Blood Count 3.5 T/CUMM (4-12)
[2017-11-25 06:51] LABS: Calcium 7.9 MG/DL (8.5-10.1); Osmolality,Calculated 277.7 MOS/KG (273-304); Potassium 4.4 MMOL/L (3.5-5.1)
[2017-11-25 06:53] LABS: Albumin 2.1 G/DL (3.4-5.0); Bilirubin,Total 1.2 MG/DL (0.2-1.0); Calcium 8.2 MG/DL (8.5-10.1); Osmolality,Calculated 279.5 MOS/KG (273-304); Potassium 4.4 MMOL/L (3.5-5.1)
[2017-11-25 06:55] LABS: Burr Cells 2+; Hypochromasia 1+
[2017-11-25] MEDS: ESCITALOPRAM 10 MG TABLET PO SCH (09:22)
[2017-11-25] MEDS: COLESTIPOL 1 GM TABLET PO SCH ×2 (09:22→20:35)
[2017-11-25] MEDS: FUROSEMIDE 40 MG TABLET PO SCH (09:23)
[2017-11-25] MEDS: FERROUS SULFATE 325 MG TABLET PO SCH (09:23)
[2017-11-25] MEDS: TAMSULOSIN 0.4 MG CAPSULE PO SCH (09:23)
[2017-11-25] MEDS: OXYBUTYNIN 5 MG TABLET PO SCH ×2 (09:23→20:35)
[2017-11-25] MEDS: CHOLECALCIFEROL 1,000 UNIT TABLET PO SCH (09:23)
[2017-11-25] MEDS: PANTOPRAZOLE 40 MG TABLET PO SCH (09:23)
[2017-11-25] MEDS: SPIRONOLACTONE 50 MG TABLET PO SCH ×2 (09:23→20:35)
[2017-11-25] MEDS: MEMANTINE 5 MG TABLET PO SCH ×2 (09:39→20:35)
[2017-11-25] MEDS: LEVOFLOXACIN INJ 250 MG in PREMIX 1 EACH IV SCH (20:35)
[2017-11-26 07:26] VITALS: BP 113/69
[2017-11-26] MEDS: FUROSEMIDE 40 MG TABLET PO SCH (09:27)
[2017-11-26] MEDS: COLESTIPOL 1 GM TABLET PO SCH (09:27)
[2017-11-26] MEDS: CHOLECALCIFEROL 1,000 UNIT TABLET PO SCH (09:27)
[2017-11-26] MEDS: SPIRONOLACTONE 50 MG TABLET PO SCH (09:27)
[2017-11-26] MEDS: OXYBUTYNIN 5 MG TABLET PO SCH (09:27)
[2017-11-26] MEDS: MEMANTINE 5 MG TABLET PO SCH (09:27)
[2017-11-26] MEDS: ESCITALOPRAM 10 MG TABLET PO SCH (09:27)
[2017-11-26] MEDS: TAMSULOSIN 0.4 MG CAPSULE PO SCH (09:27)
[2017-11-26] MEDS: FERROUS SULFATE 325 MG TABLET PO SCH (09:27)
[2017-11-26] MEDS: PANTOPRAZOLE 40 MG TABLET PO SCH (09:28)
== END 2017-11-26 11:36 | DRG 689 ==
LOC: EDBD → EDUNIT# → N.ED 15:20 → SUATTDRO 20:38 → N.EDINP 20:38 → N.5E 22:32
PROVIDERS: ADMIT Internal Medicine Infectious Disease; ATTEND Internal Medicine Cardiovascular Disease

== ENCOUNTER 2018-01-12 08:51 | Inpatient (IN) ==
[2018-01-12 09:28] LABS: Apearance,Urine CLEAR (Clear); Bilirubin,Urine Negative (Negative); Blood, Urine Moderate mg/dL (Negative); Glucose,Urine (UA) Negative (Negative); Ketones,Urine Negative (Negative); Mucus,Urine Occasional /LPF (Occasional); Nitrite,Urine Negative (Negative); Protein,Urine Negative; RBC,Urine 60 /HPF (0-4); Urine Color Yellow (Yellow); Urine Specific Gravity 1.011 (1.001-1.035); Urine Urobilinogen < 2.0 EU/DL (0.2-1.0); WBC,Urine 23 /HPF (0-6)
[2018-01-12 09:44] LABS: Basophils % 0.4 % (0.0-0.8); Eosinophils # 0.2 10*3/uL (0.0-0.87); Eosinophils % 2.7 % (0.00-10.9); Hemoglobin 10.7 GM/DL (14.0-18.0); Immature Granulocytes % 0.9 %; Immature Granulocytes Absolute 0.05 #; Lymphocytes # 0.7 10*3/uL (1.4-4.0); Lymphocytes % 12.1 % (21.2-54.2); Mean Corpuscular HGB Conc 32.4 GM/DL (32-36); Mean Corpuscular Hemoglobin 28 PG (27-34); Mean Corpuscular Volume 87.1 FL (87-102); Mean Platelet Volume 10.5 FL (9.6-12.0); Monocytes # 0.7 10*3/uL (0.11-0.8); Neutrophils % 71.9 % (38.7-73.9); Platelet Count 100 T/CUMM (130-400); Red Blood Count 3.79 MC/CUMM (3.8-5.5); Red Cell Distribution Width 15.4 % (9.3-17.3); White Blood Count 5.5 T/CUMM (4-12)
[2018-01-12 10:07] LABS: Albumin 2.2 G/DL (3.4-5.0); Bilirubin,Total 0.7 MG/DL (0.2-1.0); Calcium 8.6 MG/DL (8.5-10.1); Osmolality,Calculated 278.7 MOS/KG (273-304); Potassium 3.8 MMOL/L (3.5-5.1); Total Protein 7.4 G/DL (6.4-8.3)
[2018-01-12] MEDS ORDERED: LACTULOSE 20 GM/30 ML UDCUP PO PRN (12:36)
[2018-01-12] MEDS ORDERED: DOCUSATE SODIUM 100 MG CAPSULE PO PRN (12:36)
[2018-01-12] MEDS ORDERED: ONDANSETRON 4 MG/2 ML VIAL IV PRN (12:36)
[2018-01-12] MEDS ORDERED: ACETAMINOPHEN 325 MG TABLET PO PRN (12:36)
[2018-01-12] MEDS ORDERED: MORPHINE 2 MG/1 ML SYRINGE IV PRN (12:36)
[2018-01-12] MEDS: SODIUM CHLORIDE 0.9% 1,000 ML IV SCH (14:14)
[2018-01-12 15:19] LABS: Vitamin B12 479 PG/ML (211-911)
[2018-01-13] MEDS: SODIUM CHLORIDE 0.9% 1,000 ML IV SCH ×2 (02:21→20:25)
[2018-01-13 07:50] LABS: Basophils % 0.5 % (0.0-0.8); Eosinophils # 0.1 10*3/uL (0.0-0.87); Hematocrit 30.9 VOL% (42.0-52.0); Hemoglobin 10.4 GM/DL (14.0-18.0); Immature Granulocytes % 0.7 %; Immature Granulocytes Absolute 0.04 #; Lymphocytes # 0.5 10*3/uL (1.4-4.0); Lymphocytes % 8.2 % (21.2-54.2); Mean Corpuscular HGB Conc 33.7 GM/DL (32-36); Mean Corpuscular Hemoglobin 29 PG (27-34); Mean Corpuscular Volume 85.8 FL (87-102); Mean Platelet Volume 11.1 FL (9.6-12.0); Monocytes # 0.6 10*3/uL (0.11-0.8); Monocytes % 10.4 % (1.7-12.7); Neutrophils # 4.3 10*3/uL (1.4-7.4); Neutrophils % 78.2 % (38.7-73.9); Platelet Count 106 T/CUMM (130-400); Red Cell Distribution Width 15.4 % (9.3-17.3); White Blood Count 5.5 T/CUMM (4-12)
[2018-01-13 08:11] LABS: Albumin 2.2 G/DL (3.4-5.0); Bilirubin,Total 1.1 MG/DL (0.2-1.0); Calcium 8.2 MG/DL (8.5-10.1); Osmolality,Calculated 280.5 MOS/KG (273-304); Potassium 4.1 MMOL/L (3.5-5.1); Total Protein 6.6 G/DL (6.4-8.3)
[2018-01-13] MEDS: PANTOPRAZOLE 40 MG TABLET PO SCH (09:32)
[2018-01-13] MEDS: LEVOFLOXACIN INJ 500 MG in PREMIX 1 EACH IV SCH (11:46)
[2018-01-13 14:39] LABS: INR 1.1; PT Patient Result 11.6 SECS
[2018-01-13] MEDS: ZINC OXIDE PASTE 113 GM TUBE TOP SCH (20:27)
[2018-01-14 05:38] LABS: INR 1.1
[2018-01-14 05:39] LABS: Basophils % 0.6 % (0.0-0.8); Eosinophils # 0.1 10*3/uL (0.0-0.87); Eosinophils % 2.3 % (0.00-10.9); Hematocrit 29.9 VOL% (42.0-52.0); Hemoglobin 10.2 GM/DL (14.0-18.0); Immature Granulocytes % 0.8 %; Immature Granulocytes Absolute 0.04 #; Lymphocytes # 0.3 10*3/uL (1.4-4.0); Lymphocytes % 6.4 % (21.2-54.2); Mean Corpuscular HGB Conc 34.1 GM/DL (32-36); Mean Corpuscular Hemoglobin 29 PG (27-34); Mean Corpuscular Volume 84.9 FL (87-102); Mean Platelet Volume 10.5 FL (9.6-12.0); Monocytes # 0.6 10*3/uL (0.11-0.8); Monocytes % 12.8 % (1.7-12.7); Neutrophils # 3.7 10*3/uL (1.4-7.4); Neutrophils % 77.1 % (38.7-73.9); Red Blood Count 3.52 MC/CUMM (3.8-5.5); Red Cell Distribution Width 15.3 % (9.3-17.3); White Blood Count 4.9 T/CUMM (4-12)
[2018-01-14 05:42] LABS: Platelet Count 90 T/CUMM (130-400)
[2018-01-14] MEDS ORDERED: LEVOFLOXACIN INJ 500 MG in PREMIX 1 EACH IV ONE (06:00)
[2018-01-14 06:01] LABS: Giant Platelets Few; Hypochromasia 1+; Ovalocytes Slight; Platelet Estimate Decreased
[2018-01-14 06:02] LABS: Microcytosis Slight
[2018-01-14 06:11] LABS: Albumin 2.1 G/DL (3.4-5.0); Calcium 8.4 MG/DL (8.5-10.1); Osmolality,Calculated 278.7 MOS/KG (273-304); Potassium 3.9 MMOL/L (3.5-5.1); Total Protein 6.3 G/DL (6.4-8.3)
[2018-01-14] MEDS: ZINC OXIDE PASTE 113 GM TUBE TOP SCH ×2 (09:23→22:45)
[2018-01-14] MEDS: SODIUM CHLORIDE 0.9% 1,000 ML IV SCH (09:23)
[2018-01-14] MEDS: PANTOPRAZOLE 40 MG TABLET PO SCH (09:23)
[2018-01-14] MEDS: LEVOFLOXACIN INJ 500 MG in PREMIX 1 EACH IV SCH (12:04)
[2018-01-15] MEDS ORDERED: LIDOCAINE 2% TOP JELLY 20 ML VIAL INTRAURETH ONE (05:53)
[2018-01-15] MEDS ORDERED: LEVOFLOXACIN INJ 500 MG in PREMIX 1 EACH IV ONE (06:00)
[2018-01-15] MEDS: LACTATED RINGERS 1,000 ML IV SCH (06:51)
[2018-01-15] MEDS ORDERED: fentaNYL 100 MCG/2 ML VIAL ONE (08:08)
[2018-01-15] MEDS ORDERED: ONDANSETRON 4 MG/2 ML VIAL ONE (08:08)
[2018-01-15] MEDS ORDERED: SEVOFLURANE 1 UNIT/15 MINUTE INH ONE (08:08)
[2018-01-15] MEDS ORDERED: PROPOFOL 200 MG/20 ML VIAL IV ONE (08:08)
[2018-01-15] MEDS ORDERED: DILTIAZEM 50 MG/10 ML VIAL IV ONE (08:12)
[2018-01-15 09:03] LABS: Basophils % 0.7 % (0.0-0.8); Eosinophils # 0.1 10*3/uL (0.0-0.87); Eosinophils % 2.2 % (0.00-10.9); Hematocrit 34.8 VOL% (42.0-52.0); Hemoglobin 11.3 GM/DL (14.0-18.0); Immature Granulocytes % 0.9 %; Immature Granulocytes Absolute 0.05 #; Lymphocytes # 0.5 10*3/uL (1.4-4.0); Lymphocytes % 8.6 % (21.2-54.2); Mean Corpuscular HGB Conc 32.5 GM/DL (32-36); Mean Corpuscular Hemoglobin 29 PG (27-34); Mean Corpuscular Volume 87.9 FL (87-102); Mean Platelet Volume 10.6 FL (9.6-12.0); Monocytes # 0.6 10*3/uL (0.11-0.8); Monocytes % 11.4 % (1.7-12.7); Neutrophils # 4.2 10*3/uL (1.4-7.4); Neutrophils % 76.2 % (38.7-73.9); Platelet Count 108 T/CUMM (130-400); Red Blood Count 3.96 MC/CUMM (3.8-5.5); Red Cell Distribution Width 15.2 % (9.3-17.3); White Blood Count 5.5 T/CUMM (4-12)
[2018-01-15] MEDS: PANTOPRAZOLE 40 MG TABLET PO SCH (09:50)
[2018-01-15] MEDS: ZINC OXIDE PASTE 113 GM TUBE TOP SCH ×2 (09:51→20:57)
[2018-01-15] MEDS: LEVOFLOXACIN INJ 500 MG in PREMIX 1 EACH IV SCH (11:49)
[2018-01-16 03:32] LABS: Basophils % 0.4 % (0.0-0.8); Eosinophils # 0.1 10*3/uL (0.0-0.87); Eosinophils % 1.2 % (0.00-10.9); Hematocrit 30.8 VOL% (42.0-52.0); Hemoglobin 10.4 GM/DL (14.0-18.0); Immature Granulocytes % 0.7 %; Immature Granulocytes Absolute 0.04 #; Lymphocytes # 0.4 10*3/uL (1.4-4.0); Lymphocytes % 6.7 % (21.2-54.2); Mean Corpuscular HGB Conc 33.8 GM/DL (32-36); Mean Corpuscular Hemoglobin 29 PG (27-34); Mean Platelet Volume 11.1 FL (9.6-12.0); Monocytes # 0.6 10*3/uL (0.11-0.8); Monocytes % 10.4 % (1.7-12.7); Neutrophils # 4.6 10*3/uL (1.4-7.4); Neutrophils % 80.6 % (38.7-73.9); Platelet Count 95 T/CUMM (130-400); Red Blood Count 3.58 MC/CUMM (3.8-5.5); Red Cell Distribution Width 15.3 % (9.3-17.3); White Blood Count 5.7 T/CUMM (4-12)
[2018-01-16 03:51] LABS: Calcium 8.4 MG/DL (8.5-10.1); Osmolality,Calculated 278.8 MOS/KG (273-304); Potassium 4.7 MMOL/L (3.5-5.1)
[2018-01-16 03:54] LABS: Risk Ratio 2.45; VLDL CHOLESTEROL 9.4 MG/DL
[2018-01-16 05:18] LABS: Band Neutrophils 4 % (0-10); Eosinophils 2 % (0-10); Lymphocytes 3 % (20-55); Myelocytes 1 %; Segmented Neutrophils 90 % (50-85); Total Cells Counted 100
[2018-01-16 05:19] LABS: Acanthocytes Few; Anisocytosis 1+; Ovalocytes 2+
[2018-01-16 05:20] LABS: Platelet Estimate Decreased
[2018-01-16] MEDS: PANTOPRAZOLE 40 MG TABLET PO SCH (10:10)
[2018-01-16] MEDS: ZINC OXIDE PASTE 113 GM TUBE TOP SCH ×2 (10:10→21:30)
[2018-01-16] MEDS: LEVOFLOXACIN INJ 500 MG in PREMIX 1 EACH IV SCH (14:17)
[2018-01-16] MEDS: LACTATED RINGERS 1,000 ML IV SCH (21:29)
[2018-01-17] MEDS: PANTOPRAZOLE 40 MG TABLET PO SCH (08:51)
[2018-01-17] MEDS: LACTATED RINGERS 1,000 ML IV SCH (08:52)
[2018-01-17] MEDS: ZINC OXIDE PASTE 113 GM TUBE TOP SCH ×2 (08:52→20:33)
[2018-01-17] MEDS: LEVOFLOXACIN INJ 500 MG in PREMIX 1 EACH IV SCH (10:41)
[2018-01-18] MEDS ORDERED: MORPHINE 2 MG/1 ML SYRINGE IV PRN (01:09)
[2018-01-18 05:17] LABS: INR 1.1; PT Patient Result 11.9 SECS
[2018-01-18 05:22] LABS: Basophils % 0.2 % (0.0-0.8); Eosinophils # 0.1 10*3/uL (0.0-0.87); Hematocrit 28.3 VOL% (42.0-52.0); Hemoglobin 9.6 GM/DL (14.0-18.0); Immature Granulocytes % 0.7 %; Immature Granulocytes Absolute 0.03 #; Lymphocytes # 0.3 10*3/uL (1.4-4.0); Lymphocytes % 6.4 % (21.2-54.2); Mean Corpuscular HGB Conc 33.9 GM/DL (32-36); Mean Corpuscular Hemoglobin 29 PG (27-34); Mean Corpuscular Volume 84.5 FL (87-102); Mean Platelet Volume 10.7 FL (9.6-12.0); Monocytes # 0.5 10*3/uL (0.11-0.8); Monocytes % 11.3 % (1.7-12.7); Neutrophils # 3.6 10*3/uL (1.4-7.4); Neutrophils % 79.4 % (38.7-73.9); Platelet Count 94 T/CUMM (130-400); Red Blood Count 3.35 MC/CUMM (3.8-5.5); Red Cell Distribution Width 15.6 % (9.3-17.3); White Blood Count 4.5 T/CUMM (4-12)
[2018-01-18 05:39] LABS: Calcium 8.6 MG/DL (8.5-10.1); Osmolality,Calculated 283.7 MOS/KG (273-304); Potassium 4.1 MMOL/L (3.5-5.1)
[2018-01-18 06:09] LABS: Band Neutrophils 1 % (0-10); Eosinophils 2 % (0-10); Hypochromasia 1+; Lymphocytes 4 % (20-55); Ovalocytes Slight; Platelet Estimate Decreased; Segmented Neutrophils 85 % (50-85); Total Cells Counted 100
[2018-01-18 06:10] LABS: Microcytosis Slight
[2018-01-18] MEDS ORDERED: MAGNESIUM SULF RIDER 2 GM in PREMIX 1 EACH IV ONE (09:28)
[2018-01-18] MEDS: ZINC OXIDE PASTE 113 GM TUBE TOP SCH (10:32)
[2018-01-18] MEDS: PANTOPRAZOLE 40 MG TABLET PO SCH (10:32)
[2018-01-18 11:48] VITALS: BP 118/56
[2018-01-18] MEDS: LACTATED RINGERS 1,000 ML IV SCH (12:57)
[2018-01-18] MEDS: LEVOFLOXACIN INJ 500 MG in PREMIX 1 EACH IV SCH (12:59)
[2018-01-18] MEDS ORDERED: LACTULOSE 20 GM/30 ML UDCUP PO SCH (15:00)
== END 2018-01-18 17:00 | disposition hospice, home (50) | DRG 694 ==
LOC: EDBD → EDUNIT# → N.ED 08:51 → N.EDINP 11:45 → SUATTDRO 11:45 → N.EDINP 12:45 → N.4E 13:17
PROVIDERS: ADMIT Internal Medicine; ATTEND Internal Medicine

== ENCOUNTER 2018-01-23 00:38 | Inpatient (IN) ==
[2018-01-23] MEDS ORDERED: ROCURONIUM 100 MG/10 ML VIAL IV ONE (00:57)
[2018-01-23] MEDS ORDERED: ETOMIDATE 20 MG/10 ML VIAL IV ONE (00:57)
[2018-01-23] MEDS ORDERED: cefTRIAXone 1,000 MG in SODIUM CHLORIDE 0.9% 100 ML IV STA (01:02)
[2018-01-23] MEDS ORDERED: SODIUM CHLORIDE 0.9% 1,000 ML IV STA (01:02)
[2018-01-23 01:10] LABS: ABG Base Excess -9.9 MMOL/L (-2.5-2.5); ABG HCO3 16.6 MMOL/L (20-26); ABG Oxygen Saturation 96.8 % (95-100); ABG PCO2 54.8 MM HG (35-48); ABG TCO2 18.1 MMOL/L (23-27); Allen Test Positive; Pt O2 Delivery Device Ventilator
[2018-01-23 01:15] LABS: ABG PH 7.158 (7.35-7.45)
[2018-01-23 01:17] LABS: Basophils # 0.1 10*3/uL (0.0-0.2); Basophils % 0.3 % (0.0-0.8); Eosinophils % 0.2 % (0.00-10.9); Hematocrit 38.8 VOL% (42.0-52.0); Immature Granulocytes Absolute 0.18 #; Lymphocytes # 1.2 10*3/uL (1.4-4.0); Lymphocytes % 6.8 % (21.2-54.2); Mean Corpuscular HGB Conc 30.9 GM/DL (32-36); Mean Corpuscular Hemoglobin 29 PG (27-34); Mean Corpuscular Volume 92.6 FL (87-102); Mean Platelet Volume 10.7 FL (9.6-12.0); Monocytes # 0.8 10*3/uL (0.11-0.8); Monocytes % 4.7 % (1.7-12.7); Neutrophils # 14.9 10*3/uL (1.4-7.4); Platelet Count 191 T/CUMM (130-400); Red Blood Count 4.19 MC/CUMM (3.8-5.5); Red Cell Distribution Width 15.9 % (9.3-17.3); White Blood Count 17.2 T/CUMM (4-12)
[2018-01-23] MEDS ORDERED: cefTRIAXone 1,000 MG VIAL ONE (01:29)
[2018-01-23 01:33] LABS: Alanine Aminotransferase 17 U/L (16-61); Albumin 2.4 G/DL (3.4-5.0); Alkaline Phosphatase 100 U/L (45-117); Aspartate Amino Transferase 40 U/L (0-37); Blood Urea Nitrogen 34 MG/DL (7-18); Calcium 8.7 MG/DL (8.5-10.1); Glucose 130 MG/DL (74-106); Osmolality,Calculated 288.4 MOS/KG (273-304); Potassium 4.5 MMOL/L (3.5-5.1); Sodium 140 MMOL/L (136-145); Total Protein 7.2 G/DL (6.4-8.3)
[2018-01-23 01:34] LABS: Lactic Acid 5.8 MMOL/L (0.4-2.0)
[2018-01-23 02:11] LABS: Apearance,Urine CLOUDY (Clear); Bacteria,Urine Moderate /HPF (Few); Bilirubin,Urine Negative (Negative); Blood, Urine Large mg/dL (Negative); Glucose,Urine (UA) Negative (Negative); Ketones,Urine 5 mg/dL (Negative); Nitrite,Urine Negative (Negative); Protein,Urine 100 MG/DL; RBC,Urine 253 /HPF (0-4); Squamous Epithelial Cell,Urine Occasional /HPF (0-10); Urine Color Amber (Yellow); Urine Specific Gravity 1.013 (1.001-1.035); Urine Urobilinogen < 2.0 EU/DL (0.2-1.0); WBC,Urine 361 /HPF (0-6)
[2018-01-23] MEDS ORDERED: ONDANSETRON 4 MG/2 ML VIAL IV PRN (02:36)
[2018-01-23] MEDS ORDERED: ALBUTEROL/IPRATROPIUM 3 ML NEB RESP TX PRN (02:36)
[2018-01-23] MEDS ORDERED: GLUCAGON 1 MG VIAL IM PRN (03:14)
[2018-01-23] MEDS ORDERED: DEXTROSE 50% 25 GM/50 ML VIAL IV PRN (03:14)
[2018-01-23] MEDS ORDERED: LACTATED RINGERS 2,400 ML IV ONE (03:14)
[2018-01-23] MEDS: HYDROCORTISONE 100 MG VIAL IV SCH ×4 (03:36→21:24)
[2018-01-23 04:41] LABS: ABG Base Excess -10.3 MMOL/L (-2.5-2.5); ABG HCO3 16.3 MMOL/L (20-26); ABG Oxygen Saturation 96.9 % (95-100); ABG PCO2 38.9 MM HG (35-48); ABG PH 7.239 (7.35-7.45); ABG TCO2 15.2 MMOL/L (23-27); Allen Test Positive; Pt O2 Delivery Device Ventilator
[2018-01-23] MEDS: PIPERACILLIN/TAZOBACTAM 3,375 MG in SODIUM CHLORIDE 0.9% 100 ML IV SCH ×3 (04:45→19:34)
[2018-01-23 05:25] LABS: INR 1.8; PT Patient Result 18.3 SECS
[2018-01-23 05:35] LABS: Lactic Acid 10.2 MMOL/L (0.4-2.0)
[2018-01-23 05:39] LABS: Partial Thromboplastin Time 62.3 SECS (0-40)
[2018-01-23] MEDS: INSULIN REGULAR 100 UNIT/ML SUBCUT SCH ×3 (06:50→18:31)
[2018-01-23] MEDS: ALBUTEROL/IPRATROPIUM 3 ML NEB RESP TX SCH ×3 (07:16→19:12)
[2018-01-23] MEDS: LACTATED RINGERS 1,000 ML IV SCH ×2 (07:18→11:45)
[2018-01-23] MEDS ORDERED: ENOXAPARIN 30 MG/0.3 ML SYRINGE SUBCUT SCH (09:00)
[2018-01-23] MEDS ORDERED: LEVOFLOXACIN INJ 750 MG in PREMIX 1 EACH IV SCH (09:00)
[2018-01-23] MEDS: PANTOPRAZOLE 40 MG VIAL IV SCH (09:29)
[2018-01-23] MEDS: SODIUM CHLORIDE 0.9% 1,000 ML IV SCH ×2 (11:45→18:28)
[2018-01-23] MEDS: MORPHINE 2 MG/1 ML SYRINGE IV PRN ×2 (19:33→22:15)
[2018-01-24] MEDS: INSULIN REGULAR 100 UNIT/ML SUBCUT SCH ×4 (00:54→18:20)
[2018-01-24] MEDS: ALBUTEROL/IPRATROPIUM 3 ML NEB RESP TX SCH ×3 (00:59→13:43)
[2018-01-24] MEDS: SODIUM CHLORIDE 0.9% 1,000 ML IV SCH ×4 (01:15→22:58)
[2018-01-24] MEDS: PIPERACILLIN/TAZOBACTAM 3,375 MG in SODIUM CHLORIDE 0.9% 100 ML IV SCH ×3 (03:30→21:12)
[2018-01-24] MEDS: MORPHINE 2 MG/1 ML SYRINGE IV PRN ×7 (03:30→21:11)
[2018-01-24] MEDS: HYDROCORTISONE 100 MG VIAL IV SCH ×4 (03:30→21:12)
[2018-01-24 04:28] LABS: Basophils % 0.2 % (0.0-0.8); Hematocrit 28.4 VOL% (42.0-52.0); Hemoglobin 9.3 GM/DL (14.0-18.0); Immature Granulocytes % 0.5 %; Immature Granulocytes Absolute 0.03 #; Lymphocytes # 0.2 10*3/uL (1.4-4.0); Lymphocytes % 3.3 % (21.2-54.2); Mean Corpuscular HGB Conc 32.7 GM/DL (32-36); Mean Corpuscular Hemoglobin 28 PG (27-34); Mean Corpuscular Volume 85.5 FL (87-102); Mean Platelet Volume 10.5 FL (9.6-12.0); Monocytes # 0.4 10*3/uL (0.11-0.8); Monocytes % 7.7 % (1.7-12.7); Neutrophils % 88.3 % (38.7-73.9); Red Blood Count 3.32 MC/CUMM (3.8-5.5); Red Cell Distribution Width 15.9 % (9.3-17.3); White Blood Count 5.7 T/CUMM (4-12)
[2018-01-24 04:35] LABS: Platelet Count 59 T/CUMM (130-400)
[2018-01-24 04:58] LABS: Albumin 1.9 G/DL (3.4-5.0); Osmolality,Calculated 296.1 MOS/KG (273-304); Potassium 3.9 MMOL/L (3.5-5.1)
[2018-01-24 05:10] LABS: Acanthocytes 1+; Anisocytosis 2+; Band Neutrophils 27 % (0-10); Lymphocytes 3 % (20-55); Poikilocytosis 2+; Segmented Neutrophils 67 % (50-85); Total Cells Counted 100
[2018-01-24 07:57] LABS: Allen Test Positive; Pt O2 Delivery Device Ventilator
[2018-01-24 07:58] LABS: ABG Base Excess -4.1 MMOL/L (-2.5-2.5); ABG Oxygen Saturation 99.8 % (95-100); ABG PCO2 33.9 MM HG (35-48); ABG PH 7.384 (7.35-7.45)
[2018-01-24] MEDS: PANTOPRAZOLE 40 MG VIAL IV SCH (09:38)
[2018-01-25] MEDS: INSULIN REGULAR 100 UNIT/ML SUBCUT SCH (01:08)
[2018-01-25] MEDS: MORPHINE 2 MG/1 ML SYRINGE IV PRN (01:09)
[2018-01-25] MEDS: HYDROCORTISONE 100 MG VIAL IV SCH (05:09)
[2018-01-25] MEDS: PIPERACILLIN/TAZOBACTAM 3,375 MG in SODIUM CHLORIDE 0.9% 100 ML IV SCH (05:10)
[2018-01-25 06:09] VITALS: BP 38/20
== END 2018-01-25 05:00 | disposition expired | DRG 871 ==
LOC: EDUNIT# → N.ED 00:38 → N.EDINP 02:21 → SUATTDRO 02:21 → N.ICU 03:00 → N.2E 01-24 16:41
PROVIDERS: ADMIT Internal Medicine Geriatric Medicine; ATTEND Internal Medicine